=== PATIENT | female | born 1970 | race Caucasian/White ===

== ENCOUNTER 2018-06-27 14:13 | Outpatient (REF) | payer MEDICAID, SELFPAY ==
[2018-06-27 22:39] LABS: Abs Immature Grans 0.03 k/cumm (0.0-0.09); Absolute Basophil Count 0.02 k/cumm (0.0-0.2); Absolute Eosinophil Count 0.08 k/cumm (0.0-0.7); Absolute Lymphocyte Count 2.85 k/cumm (1.2-3.4); Basophils % 0.2; Eosinophils % 0.7; HCT 46.9 % (36.0-46.0); HGB 15.8 g/dL (12.0-15.5); Immature Grans % 0.3; Lymphocytes % 24.9; Mean Corp. HGB Concentration 33.7 g/dL (32.0-36.0); Mean Corpuscular Hemoglobin 32.2 pg (27.0-33.0); Mean Corpuscular Volume 95.5 fL (80-95); Mean Platelet Volume 12.5 fL (8.0-11.0); Monocytes % 6.6; Neutrophils % 67.3; Platelet Count 195 x1000/uL (130-400); RBC 4.91 m/cumm (4.00-5.20); RBC Distribution Width 12.5 % (11.7-14.6); White Blood Cell Count 11.44 k/cumm (4.4-10.8)
[2018-06-27 22:44] LABS: Absolute Monocyte Count 0.76 k/cumm (0.11-0.7)
[2018-06-27 22:53] LABS: TSH 1.03 uIU/mL (0.358-3.74)
[2018-06-27 23:12] LABS: Hemoglobin A1C 5.4 % (4.5-6.2)
== END 2018-06-27 14:33 ==
LOC: NCHCN 14:13
PROVIDERS: PCP Family Medicine; Visit Provider Family Medicine
DX: I10 Essential (primary) hypertension (principal); E66.9 Obesity, unspecified; R53.83 Other fatigue; R42 Dizziness and giddiness; R19.7 Diarrhea, unspecified
CPT/HCPCS: 83036; 84443; 85025

== ENCOUNTER 2018-11-17 16:08 | Outpatient (REF) | payer MEDICAID, SELFPAY ==
[2018-11-17 21:04] LABS: Abs Immature Grans 0.03 k/cumm (0.0-0.09); Absolute Basophil Count 0.03 k/cumm (0.0-0.2); Absolute Eosinophil Count 0.13 k/cumm (0.0-0.7); Absolute Lymphocyte Count 3.51 k/cumm (1.2-3.4); Absolute Monocyte Count 0.96 k/cumm (0.11-0.7); Absolute Neutrophil Count 6.73 k/cumm (1.2-6.7); Basophils % 0.3; Eosinophils % 1.1; HCT 46.2 % (36.0-46.0); HGB 15.4 g/dL (12.0-15.5); Immature Grans % 0.3; Lymphocytes % 30.8; Mean Corp. HGB Concentration 33.3 g/dL (32.0-36.0); Mean Corpuscular Hemoglobin 32.2 pg (27.0-33.0); Mean Corpuscular Volume 96.7 fL (80-95); Mean Platelet Volume 12.1 fL (8.0-11.0); Monocytes % 8.4; Neutrophils % 59.1; Platelet Count 194 x1000/uL (130-400); RBC 4.78 m/cumm (4.00-5.20); RBC Distribution Width 12.6 % (11.7-14.6); White Blood Cell Count 11.38 k/cumm (4.4-10.8)
== END 2018-11-17 16:28 ==
LOC: NCHCN 16:08
PROVIDERS: PCP Family Medicine; Visit Provider Nurse Practitioner Family
DX: R04.2 Hemoptysis (principal); R19.7 Diarrhea, unspecified
CPT/HCPCS: 85025

== ENCOUNTER 2019-03-05 07:49 | Outpatient (CLI) | payer MEDICAID, SELFPAY ==
[2019-03-05 08:18] LABS: Abs Immature Grans 0.01 k/cumm (0.0-0.09); Absolute Basophil Count 0.02 k/cumm (0.0-0.2); Absolute Eosinophil Count 0.09 k/cumm (0.0-0.7); Absolute Monocyte Count 0.52 k/cumm (0.11-0.7); Basophils % 0.4; Eosinophils % 1.8; HCT 38.9 % (36.0-46.0); HGB 13.4 g/dL (12.0-15.5); Immature Grans % 0.2 %; Lymphocytes % 49.6; Mean Corp. HGB Concentration 34.4 g/dL (32.0-36.0); Mean Corpuscular Hemoglobin 32.1 pg (27.0-33.0); Mean Corpuscular Volume 93.3 fL (80-95); Mean Platelet Volume 10.5 fL (8.0-11.0); Monocytes % 10.3; Neutrophils % 37.7; Platelet Count 262 x1000/uL (130-400); RBC 4.17 m/cumm (4.00-5.20); RBC Distribution Width 12.9 % (11.7-14.6); White Blood Cell Count 5.04 k/cumm (4.4-10.8)
[2019-03-05 08:31] LABS: ALT 20 U/L (14-59); AST 12 U/L (15-37); Albumin 3.4 g/dL (3.4-5.0); Alkaline Phosphatase 112 U/L (46-116); Anion Gap 12.2 mmol/L (3-11); BUN 11 mg/dL (7-18); Bilirubin, Total 0.2 mg/dL (0.2-1.0); CO2 26.8 mmol/L (21.0-32.0); CREATININE 0.74 mg/dL (0.55-1.02); Calcium 9.3 mg/dL (8.5-10.1); Chloride 103 mmol/L (98-107); Glucose 98 mg/dL (74-106); LDH 174 U/L (81-234); Magnesium 1.8 mg/dL (1.8-2.4); Potassium 4.5 mmol/L (3.5-5.1); Sodium 142 mmol/L (136-145); Total Protein 7.5 g/dL (6.4-8.2)
== END 2019-03-05 08:09 ==
PROVIDERS: Internal Medicine Hematology & Oncology; PCP Family Medicine; Visit Provider Internal Medicine Hospice and Palliative Medicine
DX: C34.92 Malignant neoplasm of unspecified part of left bronchus or lung (principal); C77.9 Secondary and unspecified malignant neoplasm of lymph node, unspecified
CPT/HCPCS: 36415; 80053; 83615; 83735; 85025

== ENCOUNTER 2019-03-26 07:50 | Outpatient (CLI) | payer MEDICAID, SELFPAY ==
[2019-03-26 08:24] LABS: Abs Immature Grans 0.01 k/cumm (0.0-0.09); Absolute Basophil Count 0.01 k/cumm (0.0-0.2); Absolute Eosinophil Count 0.11 k/cumm (0.0-0.7); Absolute Monocyte Count 0.61 k/cumm (0.11-0.7); Absolute Neutrophil Count 2.89 k/cumm (1.2-6.7); Basophils % 0.2; Eosinophils % 2.6; HGB 13.4 g/dL (12.0-15.5); Immature Grans % 0.2 %; Lymphocytes % 14.2; Mean Corp. HGB Concentration 34.4 g/dL (32.0-36.0); Mean Corpuscular Hemoglobin 32.1 pg (27.0-33.0); Mean Corpuscular Volume 93.3 fL (80-95); Mean Platelet Volume 10.3 fL (8.0-11.0); Monocytes % 14.4; Neutrophils % 68.4; Platelet Count 233 x1000/uL (130-400); RBC 4.18 m/cumm (4.00-5.20); RBC Distribution Width 14.2 % (11.7-14.6); White Blood Cell Count 4.23 k/cumm (4.4-10.8)
[2019-03-26 08:38] LABS: ALT 16 U/L (14-59); AST 13 U/L (15-37); Albumin 3.7 g/dL (3.4-5.0); Alkaline Phosphatase 103 U/L (46-116); Anion Gap 9.9 mmol/L (3-11); BUN 11 mg/dL (7-18); Bilirubin, Total 0.2 mg/dL (0.2-1.0); CO2 28.1 mmol/L (21.0-32.0); Calcium 8.7 mg/dL (8.5-10.1); Chloride 101 mmol/L (98-107); Glucose 95 mg/dL (74-106); LDH 177 U/L (81-234); Magnesium 1.8 mg/dL (1.8-2.4); Potassium 4.7 mmol/L (3.5-5.1); Sodium 139 mmol/L (136-145); Total Protein 7.4 g/dL (6.4-8.2)
== END 2019-03-26 08:10 ==
PROVIDERS: PCP Family Medicine; Visit Provider Internal Medicine Hospice and Palliative Medicine
DX: C34.92 Malignant neoplasm of unspecified part of left bronchus or lung (principal); C77.9 Secondary and unspecified malignant neoplasm of lymph node, unspecified
CPT/HCPCS: 36415; 80053; 83615; 83735; 85025

== ENCOUNTER 2019-04-16 03:14 | Outpatient (RCR) | payer MEDICAID, SELFPAY ==
[2019-04-16 08:44] LABS: Abs Immature Grans 0.05 k/cumm (0.0-0.09); Absolute Basophil Count 0.01 k/cumm (0.0-0.2); Absolute Lymphocyte Count 0.67 k/cumm (1.2-3.4); Absolute Monocyte Count 0.64 k/cumm (0.11-0.7); Absolute Neutrophil Count 2.91 k/cumm (1.2-6.7); Basophils % 0.2; HCT 32.4 % (36.0-46.0); HGB 10.8 g/dL (12.0-15.5); Immature Grans % 1.2 %; Lymphocytes % 15.7; Mean Corp. HGB Concentration 33.3 g/dL (32.0-36.0); Mean Corpuscular Hemoglobin 31.9 pg (27.0-33.0); Mean Corpuscular Volume 95.6 fL (80-95); Mean Platelet Volume 10.8 fL (8.0-11.0); Neutrophils % 67.9; Platelet Count 275 x1000/uL (130-400); RBC 3.39 m/cumm (4.00-5.20); RBC Distribution Width 15.6 % (11.7-14.6); White Blood Cell Count 4.28 k/cumm (4.4-10.8)
[2019-04-16 08:52] LABS: ALT 16 U/L (14-59); AST 12 U/L (15-37); Albumin 3.2 g/dL (3.4-5.0); Alkaline Phosphatase 99 U/L (46-116); Anion Gap 9.1 mmol/L (3-11); BUN 13 mg/dL (7-18); Bilirubin, Total 0.1 mg/dL (0.2-1.0); CO2 25.9 mmol/L (21.0-32.0); CREATININE 0.81 mg/dL (0.55-1.02); Calcium 8.5 mg/dL (8.5-10.1); Chloride 106 mmol/L (98-107); Glucose 90 mg/dL (74-106); LDH 188 U/L (81-234); Potassium 4.6 mmol/L (3.5-5.1); Sodium 141 mmol/L (136-145); Total Protein 6.5 g/dL (6.4-8.2)
--- NOTE | 2019-04-16 10:47 | NUR.NOTE ---
Picc insertion: Risks and Benefits explained to the patient, and all questions were answered. Consent for placement of Picc Line obtained. Ultrasound-guided Single Lumen 4 Fr. Catheter placed using Sherlock 3CG technology and sterile technique into the Left Basilic Vein. The Basilic Vein was cannulated, a wire and dilator were advanced without resistance followed by an 4 Fr. Picc catheter pre cut to 48 cm then advanced to the hub on the catheter. P-wave comparison peaked at the hub, confirming proper placement in the SVC, using Sherlock 3CG confirmation system. A biodot was placed then secured with a statlock and Tegaderm dressing. Blood return easily obtained and line flushes easily. The patient tolerated well. Ultrasound images on file. [ End ]
== END 2019-04-28 23:59 | disposition home or self-care (01) ==
LOC: INF 03:14
PROVIDERS: PCP Family Medicine; Visit Provider Internal Medicine Hematology & Oncology
DX: C34.92 Malignant neoplasm of unspecified part of left bronchus or lung (principal); Z45.2 Encounter for adjustment and management of vascular access device; Z79.899 Other long term (current) drug therapy
CPT/HCPCS: 36569; 36592; 80053; 83615; 83735; 85025

== ENCOUNTER 2019-05-07 00:51 | Outpatient (CLI) | payer MEDICAID, SELFPAY ==
--- NOTE | 2019-05-07 | DI.MRI_ITS ---
EXAM: MR BRAIN WO/W CLINICAL HISTORY: LT LUNG CA, C34.92, S/P CHEMO AND RADIATION,new headaches TECHNIQUE: Multiplanar multisequence MRI of the brain was performed. CONTRAST MATERIAL: IV Contrast: 17 ML of Dotarem contrast administered. FINDINGS: VENTRICLES AND EXTRA AXIAL SPACES: Normal in size and morphology for the patient's age. HEMORRHAGE: None. CEREBRAL PARENCHYMA: No focus of restricted diffusion to suggest acute infarct. No space-occupying le ann identified. There are scattered areas of T2 hyper intensity noted most consistent with small ves lalo ischemic disease. MIDLINE SHIFT: None. BRAINSTEM/CEREBELLUM: Normal. CALVARIUM: Normal. ENHANCEMENT: No suspicious enhancement identified. VISUALIZED PARANASAL SINUSES/MASTOIDS: Clear. [place]: Normal flow void. PITUITARY GLAND: Unremarkable. OTHER FINDINGS: None. IMPRESSION: No evidence of intracranial metastatic disease. DATA REPOSITORY:
[2019-05-07] MEDS: Normal Saline Flush 10 ML SYR IVP (15:12)
[2019-05-07] MEDS: Gadoterate meglumine 20 ML VIAL 17 ML IVP (15:13)
== END 2019-05-07 01:11 ==
PROVIDERS: PCP Family Medicine; Visit Provider Radiology Radiation Oncology
DX: C34.92 Malignant neoplasm of unspecified part of left bronchus or lung (principal); Z92.21 Personal history of antineoplastic chemotherapy; Z92.3 Personal history of irradiation; R51 Headache
CPT/HCPCS: 70553

== ENCOUNTER 2019-09-07 02:15 | Outpatient (CLI) | payer MEDICAID, SELFPAY ==
--- NOTE | 2019-09-07 | DI.MRI_ITS ---
EXAM: MR BRAIN WO/W CLINICAL HISTORY: SMALL CELL LUNG CA LT, C34.92. TECHNIQUE: Multiplanar multisequence MRI of the brain was performed. CONTRAST MATERIAL: IV Contrast: 16 ML of Dotarem contrast administered. COMPARISON: MR MR BRAIN WO/W from 05/07/2019 FINDINGS: VENTRICLES AND EXTRA AXIAL SPACES: Normal in size and morphology for the patient's age. HEMORRHAGE: None. CEREBRAL PARENCHYMA: There are minimal scattered tiny high signal lesions, consistent with small vess el disease, unchanged. No focus of restricted diffusion to suggest acute infarct. No space-occupying lesion identified. MIDLINE SHIFT: None. BRAINSTEM/CEREBELLUM: Normal. Or ENHANCEMENT: No suspicious enhancement identified. VISUALIZED PARANASAL SINUSES/MASTOIDS: Clear. The vascular flow voids appear intact. IMPRESSION: Unremarkable MRI of the brain. No evidence of metastatic disease. DATA REPOSITORY:
[2019-09-07 09:57] LABS: CREATININE 0.97 mg/dL (0.55-1.02)
[2019-09-07] MEDS: Normal Saline Flush 10 ML SYR IVP (09:58)
[2019-09-07] MEDS: Gadoterate meglumine 20 ML VIAL 16 ML IVP (10:00)
== END 2019-09-07 02:35 ==
PROVIDERS: PCP Family Medicine; Visit Provider Internal Medicine Hematology & Oncology
DX: C34.32 Malignant neoplasm of lower lobe, left bronchus or lung (principal); Z12.89 Encounter for screening for malignant neoplasm of other sites; I67.89 Other cerebrovascular disease
CPT/HCPCS: 70553; 82565

== ENCOUNTER 2019-11-09 12:17 | Outpatient (REF) | payer MEDICAID, SELFPAY ==
[2019-11-14 16:43] LABS: Patient Race White; SARS-CoV-2 RNA Undetected (Undetected); SARS-CoV-2 Specimen Source Nasal
== END 2019-11-09 12:37 ==
LOC: NCHCN 12:17
PROVIDERS: PCP Family Medicine; Visit Provider Family Medicine
DX: Z11.59 Encounter for screening for other viral diseases (principal)
CPT/HCPCS: U0003

== ENCOUNTER 2020-01-09 00:40 | Outpatient (CLI) | payer MEDICAID, SELFPAY ==
[2020-01-09] MEDS: Breeza Beverage 473 ML BTL PO ×2 (08:24→08:25)
[2020-01-09] MEDS: Omnipaque 350 MG/ML 50 ML BTL PO (08:24)
[2020-01-09 08:48] LABS: Abs Immature Grans 0.04 10^3/uL (0.0-0.06); Absolute Basophil Count 0.03 10^3/uL (0.0-0.2); Absolute Eosinophil Count 0.11 10^3/uL (0.0-0.7); Absolute Lymphocyte Count 0.88 10^3/uL (1.2-3.4); Absolute Monocyte Count 0.48 10^3/uL (0.1-0.8); Absolute Neutrophil Count 5.81 10^3/uL (1.2-6.7); Basophils % 0.4; Eosinophils % 1.5; HCT 40.7 % (36.0-46.0); Immature Grans % 0.5; MCH 33.1 pg (27.0-33.0); MCHC 34.4 % (32.0-36.0); MCV 96.2 fL (80-95); MPV 10.9 fL (8.0-11.0); Monocytes % 6.5; Neutrophils % 79.1; Nucleated RBC 0 %; Platelet Count 217 10^3/uL (130-400); RBC 4.23 10^6/uL (3.93-5.22); RDW 12.2 % (11.7-14.6); RDW-SD 43.5 fL; WBC 7.35 10^3/uL (4.4-10.8)
[2020-01-09 09:05] LABS: ALT 19 U/L (14-59); AST 13 U/L (15-37); Albumin 3.6 g/dL (3.4-5.0); Alkaline Phosphatase 117 U/L (46-116); Anion Gap 7.8 mmol/L (3-11); BUN 21 mg/dL (7-18); Bilirubin, Total 0.4 mg/dL (0.2-1.0); CO2 27.2 mmol/L (21.0-32.0); CREATININE 0.85 mg/dL (0.55-1.02); Calcium 9.2 mg/dL (8.5-10.1); Chloride 104 mmol/L (98-107); Glucose 92 mg/dL (74-106); Potassium 4.2 mmol/L (3.5-5.1); Sodium 139 mmol/L (136-145); Total Protein 7.3 g/dL (6.4-8.2)
[2020-01-09] MEDS: Omnipaque 350 MG/ML 100 ML BTL IJ (10:05)
[2020-01-09] MEDS: Normal Saline - Diluent 50 ML VIAL IV (10:05)
--- NOTE | 2020-01-09 10:10 | DI.CT_ITS ---
EXAM: CT CHEST/ABD/PEL W CLINICAL HISTORY: LT SMALL CELL LUNG CA,C34.92 TECHNIQUE: Imaging Protocol: Axial computed tomography images with coronal and sagittal reformatted images were created and reviewed CONTRAST MATERIAL: Intravenous: Omnipaque 350 Contrast volume:100 mL Oral: Yes COMPARISON: CT CHEST WITHOUT CONTRAST from 05/27/[address] CXR/ABD/PELVIS WITH CONTRAST from 05/18/2019 FINDINGS: CHEST: Tracheobronchial tree: Patent where visualized. Mediastinum and Zoe: No dominant adenopathy or fluid collection. Pulmonary parenchyma: Centrilobular pulmonary emphysema. The left upper lobe spiculated mass is not visualized on the current examination. The nodular opacity at the periphery of the left lower lobe is unchanged. There is a small infiltrate seen in the superior aspect of the left lower lobe. No new pu lmonary nodules are present. Pleura: No effusion or pneumothorax. Heart: The heart is not dilated. No coronary artery calcifications are seen. No pericardial effusion. Aorta: Thoracic aorta non-dilated. Atherosclerosis. Lymph nodes: Within normal limits. Bones:Degenerative changes. No suspicious osseous lesions.There is an old healed left 9th rib fractur e. Soft tissues: Unremarkable. ABDOMEN: Liver: Normal density. No measurable mass. The liver measures 19 cm in length. Portal, Superior Mesenteric, and Splenic Veins: Unremarkable. Gallbladder and Biliary Tract: No radiodense calculus or dilation. Pancreas: Normal density, no abnormal calcifications or inflammatory process. Spleen: Normal. Adrenals: Stable nodularity of the left adrenal gland. The right adrenal gland is unremarkable. Kidneys: Normal size, contour and axis. No radiodense stones or obstructive uropathy. No masses seen. Abdominal Aorta: Abdominal portion non-dilated. Atherosclerosis. Bowel: No obstruction or bowel wall thickening. Normal appendix is visualized. Peritoneal Cavity: No ascites, collection or mesenteric inflammatory response. Lymph Nodes: Within normal limits. Bones: Degenerative changes. No suspicious osseous lesions. Soft Tissues: Unremarkable. PELVIS: Bladder: Symmetric distention, no gross wall thickening. Reproductive Organs: Unremarkable as visualized. Lymph Nodes: Within normal limits. Bones: Please see above. IMPRESSION: 1. No evidence of abdominal or pelvic metastatic disease. 2. No evidence of thoracic metastatic disease. 3. Stable peripheral nodularity in the left lower lobe. 4. Pulmonary emphysema. RADIATION DOSE DELIVERED: 1,845.35mGy.cm Total DLP DATA REPOSITORY: All CT scans at this facility are submitted to the National Radiology Data Registry (NRDR) Dose Index Registry (DIR) with the [employer] (ACR). RADIATION OPTIMIZATION: All CT scans at this facility use at least one of these dose optimization te chniques: automated exposure control; mA and/or kV adjustment per patient size (includes targeted exa ms where dose is matched to clinical indication); or iterative reconstruction.
== END 2020-01-09 01:00 ==
PROVIDERS: Internal Medicine Hematology & Oncology; PCP Family Medicine; Visit Provider Nurse Practitioner Family
DX: C34.92 Malignant neoplasm of unspecified part of left bronchus or lung (principal); R91.1 Solitary pulmonary nodule; J43.9 Emphysema, unspecified
CPT/HCPCS: 74177; 80053; 71260; 85025; J3490; Q9967

== ENCOUNTER 2020-01-10 01:04 | Outpatient (CLI) | payer MEDICAID, SELFPAY ==
--- NOTE | 2020-01-10 | DI.MRI_ITS ---
EXAM: MR BRAIN WO/W CLINICAL HISTORY: LT SMALL CELL LUNG CA,C34.92. TECHNIQUE: Multiplanar multisequence MRI of the brain was performed. CONTRAST MATERIAL: IV Contrast: 16 ML of Dotarem contrast administered. COMPARISON: MR MR BRAIN WO/W from 05/07/2019 MR MR BRAIN WO/W from 09/07/2019 FINDINGS: VENTRICLES AND EXTRA AXIAL SPACES: Normal in size and morphology for the patient's age. HEMORRHAGE: None. CEREBRAL PARENCHYMA: No focus of restricted diffusion to suggest acute infarct. MIDLINE SHIFT: None. BRAINSTEM/CEREBELLUM: Normal. CALVARIUM: Normal. ENHANCEMENT: There is a 1.3 x 1.3 cm enhancing lesion in the right occipital lobe medially. There is mild associated edema present. There is a 0.3 cm enhancing nodule in the left savage radiata. Ther e is a peripherally enhancing lesion within associated enhancing nodule in the posterior aspect of th e left parietal lobe. These are all consistent with metastatic disease. VISUALIZED PARANASAL SINUSES/MASTOIDS: Clear. OTHER FINDINGS: None. IMPRESSION: Three new intracranial enhancing lesions which are consistent with metastatic disease. DATA REPOSITORY:
[2020-01-10] MEDS: Normal Saline Flush 10 ML SYR IVP (15:07)
[2020-01-10] MEDS: Gadoterate meglumine 20 ML VIAL 16 ML IVP (15:08)
== END 2020-01-10 01:24 ==
PROVIDERS: PCP Family Medicine; Visit Provider Nurse Practitioner Family
DX: C34.92 Malignant neoplasm of unspecified part of left bronchus or lung (principal); G93.9 Disorder of brain, unspecified
CPT/HCPCS: 70553

== ENCOUNTER 2020-02-25 18:38 | Outpatient (REF) | payer MEDICAID, SELFPAY ==
[2020-02-27 21:18] LABS: COVID-19 RT-PCR Result NEGATIVE (Negative)
== END 2020-02-25 18:58 ==
LOC: NCHCN 18:38
PROVIDERS: PCP Family Medicine; Visit Provider Nurse Practitioner Family
DX: R53.83 Other fatigue (principal)
CPT/HCPCS: U0003

== ENCOUNTER 2020-03-13 01:21 | Outpatient (CLI) | payer MEDICAID, SELFPAY ==
--- NOTE | 2020-03-13 | DI.MRI_ITS ---
EXAM: MR BRAIN WO/W CLINICAL HISTORY: LUNG CA WITH BRAIN METS,S/P XRT,ASSESS RESPONSE. TECHNIQUE: Multiplanar multisequence MRI was performed. COMPARISON: MR MR BRAIN WO/W from 01/10/2020 FINDINGS: MR examination of brain obtained on January 09 showed 3 enhancing lesions in the parietooccipital cortex. Today's examination was performed prior to and following contrast administration. The post contrast images again show the 3 enhancing areas in question however each of these have decreased in size,The largest lesion, in the right occipital lobe, which previously measured about 13 x 12 millim eters in diameter, now measures about 10 x 6 millimeters in diameter. There is a question of tiny poorly defined new area of enhancement in the left occipital lobe labor supervisor iorly, this is a questionable finding. No other convincing new metastatic lesion identified. Ventricular system is normal in appearance. Orbital and temporal bone structures appear intact. There is no evidence of intracranial infarct on diffusion-weighted imaging. Susceptibility weighted imagin g shows no evidence of hemorrhage. IMPRESSION: Interval decrease in size of multiple metastatic lesions as noted on prior MRI. Question tiny new le ft posterior occipital 4 millimeter lesion. DATA REPOSITORY:
[2020-03-13] MEDS: Normal Saline Flush 10 ML SYR IVP (14:13)
[2020-03-13] MEDS: Gadoterate meglumine 20 ML VIAL 17 ML IVP (14:13)
== END 2020-03-13 01:41 ==
PROVIDERS: PCP Family Medicine; Visit Provider Radiology Radiation Oncology
DX: C79.31 Secondary malignant neoplasm of brain (principal); C34.92 Malignant neoplasm of unspecified part of left bronchus or lung
CPT/HCPCS: 70553

== ENCOUNTER 2020-04-18 01:01 | Outpatient (CLI) | payer MEDICAID, SELFPAY ==
[2020-04-18 09:01] LABS: Abs Immature Grans 0.02 10^3/uL (0.0-0.06); Absolute Basophil Count 0.03 10^3/uL (0.0-0.2); Absolute Eosinophil Count 0.09 10^3/uL (0.0-0.7); Absolute Lymphocyte Count 1.01 10^3/uL (1.2-3.4); Absolute Monocyte Count 0.58 10^3/uL (0.1-0.8); Basophils % 0.4; Eosinophils % 1.1; HCT 41.1 % (36.0-46.0); Immature Grans % 0.2; Lymphocytes % 12.4; MCHC 34.1 % (32.0-36.0); MCV 94.1 fL (80-95); MPV 11.3 fL (8.0-11.0); Monocytes % 7.1; Neutrophils % 78.8; Nucleated RBC 0 %; Platelet Count 208 10^3/uL (130-400); RBC 4.37 10^6/uL (3.93-5.22); RDW 11.4 % (11.7-14.6); RDW-SD 39.8 fL; WBC 8.13 10^3/uL (4.4-10.8)
[2020-04-18 09:14] LABS: ALT 18 U/L (14-59); AST 9 U/L (15-37); Albumin 3.6 g/dL (3.4-5.0); Alkaline Phosphatase 101 U/L (46-116); Anion Gap 7.8 mmol/L (3-11); BUN 15 mg/dL (7-18); Bilirubin, Total 0.3 mg/dL (0.2-1.0); CO2 27.2 mmol/L (21.0-32.0); CREATININE 0.9 mg/dL (0.55-1.02); Calcium 9.2 mg/dL (8.5-10.1); Chloride 102 mmol/L (98-107); Glucose 91 mg/dL (74-106); Potassium 4.2 mmol/L (3.5-5.1); Sodium 137 mmol/L (136-145); Total Protein 7.3 g/dL (6.4-8.2)
[2020-04-18] MEDS: Breeza Beverage 473 ML BTL PO (10:09)
[2020-04-18] MEDS: Omnipaque 350 MG/ML 50 ML BTL IJ (10:10)
[2020-04-18] MEDS: Normal Saline - Diluent 50 ML VIAL IV (10:11)
[2020-04-18] MEDS: Omnipaque 350 MG/ML 100 ML BTL IJ (10:12)
--- NOTE | 2020-04-18 10:16 | DI.CT_ITS ---
EXAM: CT CHEST/ABD/PEL W CLINICAL HISTORY: LT SMALL CELL LUNG CA,C34.92,AAA,ASSESS TREATMENT RESPONSE. TECHNIQUE: Imaging Protocol: Axial computed tomography images with coronal and sagittal reformatted images were created and reviewed CONTRAST MATERIAL: Intravenous: Omnipaque 350 Contrast volume:100 cc Oral: yes COMPARISON: CT CT CXR/ABD/PELVIS WITH CONTRAST from 05/18/[address] CXR/ABD/PELVIS WITH CONTRAST from 05/18/2019 CR CHEST 2V from 11/09/2019 CR CHEST 2V from 11/09/[address] CHEST/ABD/PEL W from 01/09/[address] CHEST/ABD/PEL W from 01/09/2020 FINDINGS: CHEST: Tracheobronchial tree: Patent where visualized. Mediastinum and Zoe: No dominant adenopathy or fluid collection. Pulmonary parenchyma: Emphysematous and fibrotic changes, greater in the upper lobes. New 5 x 4 mill imeter areas of spiculated nodularity in the anterior left upper lobe. Areas of scarring are again n oted laterally and inferiorly in the left upper lobe. Stable area scarring inferolaterally in the le ft lower lobe. The previously noted airspace densities in left lower lobe have improved. No right-s ided pulmonary nodules.. Pleura: No effusion or pneumothorax. Lymph nodes: Within normal limits. Aorta: Thoracic portion non-dilated. Heart: Normal size. No visible coronary artery calcifications. Bones: Mild degenerative changes. Old left rib fracture. ABDOMEN: Liver: Normal density. No measurable mass. Gallbladder and biliary tract: No radiodense calculus or dilation. Pancreas: Normal density, no abnormal calcifications or inflammatory process. Spleen: Normal. Kidneys: Normal size, contour and axis. No radiodense stones or obstructive uropathy. No masses seen. Adrenal glands: No masses seen. Stable mild prominence of the left adrenal gland. Aorta: Abdominal portion non-dilated. Lymph nodes: Within normal limits. PELVIS: Bladder: Symmetric distention, no gross wall thickening. Bowel: No obstruction or bowel wall thickening. Peritoneal cavity: No ascites, collection or mesenteric inflammatory response. Bones: Mild degenerative changes. Reproductive organs: Status post hysterectomy. Ovaries normal. IMPRESSION: New 5 x 4 millimeter left upper lobe nodule. No evidence of adenopathy. Stable areas of scarring in the left lung. No evidence of metastatic disease in the abdomen or pelvis. RADIATION DOSE DELIVERED: 1,985.33mGy.cm Total DLP DATA REPOSITORY: All CT scans at this facility are submitted to the National Radiology Data Registry (NRDR) Dose Index Registry (DIR) with the [employer] (ACR). RADIATION OPTIMIZATION: All CT scans at this facility use at least one of these dose optimization te chniques: automated exposure control; mA and/or kV adjustment per patient size (includes targeted exa ms where dose is matched to clinical indication); or iterative reconstruction.
== END 2020-04-18 01:02 ==
LOC: DI 01:02
PROVIDERS: PCP Family Medicine; Visit Provider Internal Medicine Hematology & Oncology
DX: C34.92 Malignant neoplasm of unspecified part of left bronchus or lung (principal); R91.1 Solitary pulmonary nodule
CPT/HCPCS: 74177; 80053; 71260; 85025; J3490; Q9967

== ENCOUNTER 2020-07-18 04:12 | Outpatient (CLI) | payer MEDICAID, SELFPAY ==
[2020-07-18] MEDS: Gadoterate meglumine 20 ML VIAL 16 ML IVP (11:19)
--- NOTE | 2020-07-18 12:00 | DI.MRI_ITS ---
Exam(s) MR BRAIN WO/W EXAM: MR BRAIN WO/W CLINICAL HISTORY: BRAIN METS,C79.31,H/O LUNG CA,S/P RADIATION,ASSESS RESPONSE TECHNIQUE: Multiplanar multisequence MRI of the brain was performed. COMPARISON: MR MR BRAIN WO/W from 03/13/2020 FINDINGS: The ventricular system is normal in appearance. Note is again made multiple cerebral metastases, as noted on prior brain MRI of March 13 of this year. in comparison with the previous examination, there is interval increase in size of lesions in t he occipital lobes bilaterally, the largest lesion on the right now measures about 18 x 15 millimeter s in diameter as opposed to 10 x 6 millimeters in diameter on the prior study. There is a new left f rontal lesion measuring roughly 8 millimeters in greatest diameter. A high right parietal lesion poo rly visualized on the prior examination but probably measuring about [address] greatest diame ter now measures about 16 millimeters in greatest diameter. The orbital and temporal bone structures appear intact as does the pituitary. Diffusion weighted imaging shows no evidence of infarction. Susceptibility weighted imaging shows no evidence of intracranial hemorrhage. There is normal flow void in the [place] vasculature. IMPRESSION: Interval increase in size and number of intracerebral metastases. Please see above discussion. DATA REPOSITORY:
== END 2020-07-18 04:32 ==
PROVIDERS: PCP Family Medicine; Visit Provider Radiology Radiation Oncology
DX: C79.31 Secondary malignant neoplasm of brain (principal); Z85.118 Personal history of other malignant neoplasm of bronchus and lung
CPT/HCPCS: 70553

== ENCOUNTER 2020-07-23 02:21 | Outpatient (CLI) | payer MEDICAID, SELFPAY ==
--- NOTE | 2020-07-23 | DI.CT_ITS ---
Exam(s) CT CHEST W EXAM: CT CHEST W CLINICAL HISTORY: LT LUNG CA,C34.92,ASSESS TREATMENT RESPONSE. TECHNIQUE: Multi planar reconstructions were performed. CONTRAST MATERIAL: Omnipaque 350; 75 cc COMPARISON: CT CT CXR/ABD/PELVIS WITH CONTRAST from 05/18/[address] CHEST/ABD/PEL W from 01/09/2020 FINDINGS: CHEST: LUNGS: COPD emphysematous changes again noted. Also slightly decreased left hemithoracic volume, mos t probably related to prior lobectomy. There has been slight improvement in left lower lobe infiltra te although this is not yet resolved. Pleural based density over the anterior basal segment left low er lobe appears unchanged. In the anterior aspect of the upper left lung there is a 4 x 2 millimeter nodular density now evident. This was not evident on the 01/09/2020 scan nor on the 05/18/2019 scan . In the opposite-right lung there are no new significant focal findings. There are no pleural effusio ns on either side. No new findings in trachea and mainstem bronchi. MEDIASTINUM: There is no new hilar nor mediastinal adenopathy there is a 5 millimeter nodule incident ally noted in the left thyroid lobe. Smaller nodule in the right lobe. The entire thyroid gland is not included in the field of view of this study. CARDIAC: Heart size is normal. There is no pericardial effusion.Caliber of the thoracic aorta is wit hin normal limits. VISUALIZED UPPER ABDOMEN:Right adrenal gland unremarkable. Nodularity of the left adrenal gland is u nchanged from the 2 prior studies listed above. No new lesions evident in partially visualized liver . There is a small cyst in the inferior right hepatic lobe measuring 8 x 7 millimeters, unchanged fr om April 2019. OSSEOUS: No new significant osseous lesions.. IMPRESSION: 1. In the superior aspect of the left lung there is a new 3-4 millimeter nodule noted. This require appropriate follow-up. Other previously described findings in the left lung remains stable. No new findings in the opposite-right lung and there are no pleural effusions nor new intrathoracic adenopat hy. 2. Incidentally noted thyroid findings as described above. 3. Stable appearance of the slightly nodular left adrenal gland, unchanged from the prior 2 studies l isted above. RADIATION DOSE DELIVERED: 576.86mGy.cm Total DLP DATA REPOSITORY: All CT scans at this facility are submitted to the National Radiology Data Registry (NRDR) Dose Index Registry (DIR) with the [employer] (ACR). RADIATION OPTIMIZATION: All CT scans at this facility use at least one of these dose optimization te chniques: automated exposure control; mA and/or kV adjustment per patient size (includes targeted exa ms where dose is matched to clinical indication); or iterative reconstruction.
[2020-07-23 12:57] LABS: Abs Immature Grans 0.03 10^3/uL (0.0-0.06); Absolute Basophil Count 0.03 10^3/uL (0.0-0.2); Absolute Eosinophil Count 0.13 10^3/uL (0.0-0.7); Absolute Lymphocyte Count 1.49 10^3/uL (1.2-3.4); Absolute Monocyte Count 0.78 10^3/uL (0.1-0.8); Absolute Neutrophil Count 4.96 10^3/uL (1.2-6.7); Basophils % 0.4; Eosinophils % 1.8; HCT 38.5 % (36.0-46.0); HGB 13.3 g/dL (11.2-15.7); Immature Grans % 0.4; Lymphocytes % 20.1; MCH 32.2 pg (27.0-33.0); MCHC 34.5 % (32.0-36.0); MCV 93.2 fL (80-95); MPV 10.9 fL (8.0-11.0); Monocytes % 10.5; Neutrophils % 66.8; Nucleated RBC 0 %; Platelet Count 197 10^3/uL (130-400); RBC 4.13 10^6/uL (3.93-5.22); RDW-SD 41.3 fL; WBC 7.42 10^3/uL (4.4-10.8)
[2020-07-23 13:12] LABS: ALT 20 U/L (14-59); AST 11 U/L (15-37); Albumin 3.3 g/dL (3.4-5.0); Alkaline Phosphatase 107 U/L (46-116); BUN 14 mg/dL (7-18); Bilirubin, Total 0.3 mg/dL (0.2-1.0); Calcium 8.4 mg/dL (8.5-10.1); Chloride 106 mmol/L (98-107); Estimated GFR 58.69 (mL/min/1.73m2); Glucose 113 mg/dL (74-106); Potassium 3.5 mmol/L (3.5-5.1); Sodium 141 mmol/L (136-145); Total Protein 6.9 g/dL (6.4-8.2)
[2020-07-23] MEDS: Omnipaque 350 MG/ML 100 ML BTL IJ (14:13)
[2020-07-23] MEDS: Normal Saline - Diluent 50 ML VIAL IV (14:14)
[2020-07-23] MEDS: Normal Saline Flush 10 ML SYR IVP (14:14)
== END 2020-07-23 02:41 ==
PROVIDERS: PCP Family Medicine; Visit Provider Internal Medicine Hematology & Oncology
DX: C34.92 Malignant neoplasm of unspecified part of left bronchus or lung (principal); J44.9 Chronic obstructive pulmonary disease, unspecified; R91.1 Solitary pulmonary nodule; E04.1 Nontoxic single thyroid nodule
CPT/HCPCS: 80053; 71260; 85025; J3490

== ENCOUNTER 2020-09-25 04:13 | Outpatient (CLI) | payer MEDICAID, SELFPAY ==
[2020-09-25 13:10] LABS: Abs Immature Grans 0.04 10^3/uL (0.0-0.06); Absolute Basophil Count 0.03 10^3/uL (0.0-0.2); Absolute Eosinophil Count 0.09 10^3/uL (0.0-0.7); Absolute Lymphocyte Count 1.16 10^3/uL (1.2-3.4); Absolute Monocyte Count 0.62 10^3/uL (0.1-0.8); Absolute Neutrophil Count 5.53 10^3/uL (1.2-6.7); Basophils % 0.4; Eosinophils % 1.2; HCT 38.4 % (36.0-46.0); HGB 13.2 g/dL (11.2-15.7); Immature Grans % 0.5; Lymphocytes % 15.5; MCH 32.8 pg (27.0-33.0); MCHC 34.4 % (32.0-36.0); MCV 95.5 fL (80-95); MPV 10.6 fL (8.0-11.0); Monocytes % 8.3; Neutrophils % 74.1; Nucleated RBC 0 %; Platelet Count 269 10^3/uL (130-400); RBC 4.02 10^6/uL (3.93-5.22); RDW 12.9 % (11.7-14.6); WBC 7.47 10^3/uL (4.4-10.8)
[2020-09-25 13:19] LABS: ALT 31 U/L (14-59); AST 14 U/L (15-37); Albumin 3.5 g/dL (3.4-5.0); Alkaline Phosphatase 119 U/L (46-116); Anion Gap 8.9 mmol/L (3-11); BUN 9 mg/dL (7-18); Bilirubin, Total 0.2 mg/dL (0.2-1.0); CO2 28.1 mmol/L (21.0-32.0); CREATININE 0.9 mg/dL (0.55-1.02); Calcium 9.1 mg/dL (8.5-10.1); Chloride 104 mmol/L (98-107); Glucose 124 mg/dL (74-106); Potassium 3.8 mmol/L (3.5-5.1); Sodium 141 mmol/L (136-145); Total Protein 7.2 g/dL (6.4-8.2)
== END 2020-09-25 04:14 | disposition home or self-care (01) ==
LOC: LBO 04:13
PROVIDERS: PCP Family Medicine; Visit Provider Internal Medicine Hematology & Oncology
DX: C34.92 Malignant neoplasm of unspecified part of left bronchus or lung (principal)
CPT/HCPCS: 36415; 80053; 85025

== ENCOUNTER 2020-10-17 10:38 | Outpatient (CLI) | payer MEDICAID, SELFPAY ==
[2020-10-17] MEDS: Gadoterate meglumine 20 ML VIAL 16 ML IVP (12:07)
--- NOTE | 2020-10-17 12:30 | DI.MRI_ITS ---
Exam(s) MR BRAIN WO/W EXAM: MR BRAIN WO/W CLINICAL HISTORY: RECURRENT BRAIN METS FROM LUNG CA,S/P SRS,CHANGE IN MENTAL STATUS TECHNIQUE: Multiplanar multisequence MRI of the brain was performed. CONTRAST MATERIAL: IV Contrast: 16 ML of Dotarem contrast administered. COMPARISON: MR MR BRAIN WO/W from 07/18/2020 MR MR BRAIN WO/W from 07/18/2020 FINDINGS: VENTRICLES AND EXTRA AXIAL SPACES: Normal in size and morphology for the patient's age. HEMORRHAGE: The gradient images again show evidence of old hemorrhage. CEREBRAL PARENCHYMA: No focus of restricted diffusion to suggest acute infarct. No space-occupying le ann identified. There are areas of hyperintense signal in the white matter on the T2 and FLAIR image s which may reflect small vessel ischemic disease or sequelae from radiation therapy. MIDLINE SHIFT: None. BRAINSTEM/CEREBELLUM: Normal. CALVARIUM: Normal. ENHANCEMENT: There has been a decrease in size of the right occipital lesion which now measures 1.5 x 1.4 cm. This compares to 1.8 x 1.5 cm. The left frontal lesion now measures 0.6 cm compared to 0.8 cm. The left posterior parietal lesion measures 1.3 x 1.4 cm compared to 1.5 x 1.6 cm. The left oc cipital lesion now measures 0.5 cm compared to 0.6 cm. No new intracranial lesions are present. VISUALIZED PARANASAL SINUSES/MASTOIDS: Clear. [place] OF [place]: Normal flow void. PITUITARY GLAND: Unremarkable. OTHER FINDINGS: IMPRESSION: Interval decrease in size of intracranial metastases. No new intracranial masses are seen. DATA REPOSITORY:
== END 2020-10-17 10:58 ==
PROVIDERS: PCP Family Medicine; Visit Provider Radiology Radiation Oncology
DX: C79.31 Secondary malignant neoplasm of brain (principal); C79.49 Secondary malignant neoplasm of other parts of nervous system; C34.90 Malignant neoplasm of unspecified part of unspecified bronchus or lung; Z92.3 Personal history of irradiation
CPT/HCPCS: 70553

== ENCOUNTER 2020-10-21 03:19 | Outpatient (CLI) | payer MEDICAID, SELFPAY ==
--- NOTE | 2020-10-21 | DI.CT_ITS ---
Exam(s) CT CHEST/ABD/PEL W EXAM: CT CHEST/ABD/PEL W CLINICAL HISTORY: SMALL CELL LUNG CA, C34.92. TECHNIQUE: Imaging Protocol: Axial computed tomography images with coronal and sagittal reformatted images were created and reviewed CONTRAST MATERIAL: Intravenous: Omnipaque 350 Contrast volume:100 ml Oral: yes COMPARISON: CT CT CHEST/ABD/PEL W from 04/18/2020 FINDINGS: CHEST: Tracheobronchial tree: Patent where visualized. Mediastinum and Zoe: No dominant adenopathy or fluid collection. Pulmonary parenchyma: Moderate to severe emphysematous and fibrotic changes, greater in the upper lob es.. Previously noted 5 millimeter left upper lobe nodule is no longer visible. Stable areas of sca rring in the left upper and lower lobes. No new abnormalities. Pleura: No effusion or pneumothorax. Lymph nodes: Within normal limits. Aorta: Thoracic portion non-dilated. Heart: Normal size. No coronary artery calcifications. Bones: Unremarkable for age. No lytic or blastic lesions. Port over right pectoral muscle with tip in the SVC. ABDOMEN: Liver: Normal density. No measurable mass. Gallbladder and biliary tract: No radiodense calculus or dilation. Pancreas: Normal density, no abnormal calcifications or inflammatory process. Spleen: Normal. Kidneys: Normal size, contour and axis. No radiodense stones or obstructive uropathy. No masses seen. Adrenal glands: No masses seen. Aorta: Abdominal portion non-dilated. Lymph nodes: Within normal limits. Soft tissues: Unremarkable. PELVIS: Bladder: Symmetric distention, no gross wall thickening. Bowel: No obstruction or bowel wall thickening. Peritoneal cavity: No ascites, collection or mesenteric inflammatory response. Bones: Unremarkable for age.. Reproductive organs: Status post hysterectomy. IMPRESSION: Previously noted 5 millimeter left upper lobe nodule is no longer seen. No new areas of nodularity, infiltrate or effusion. Underlying emphysematous and fibrotic changes. No evidence of metastatic di sease in the abdomen or pelvis. RADIATION DOSE DELIVERED: 1,990.31mGy.cm Total DLP DATA REPOSITORY: All CT scans at this facility are submitted to the National Radiology Data Registry (NRDR) Dose Index Registry (DIR) with the [employer] (ACR). RADIATION OPTIMIZATION: All CT scans at this facility use at least one of these dose optimization te chniques: automated exposure control; mA and/or kV adjustment per patient size (includes targeted exa ms where dose is matched to clinical indication); or iterative reconstruction.
[2020-10-21] MEDS: Omnipaque 350 MG/ML 100 ML BTL IJ (09:45)
[2020-10-21] MEDS: Breeza Beverage 473 ML BTL PO (09:49)
[2020-10-21] MEDS: Omnipaque 350 MG/ML 50 ML BTL IJ (09:50)
== END 2020-10-21 03:39 ==
PROVIDERS: PCP Family Medicine; Visit Provider Internal Medicine Hematology & Oncology
DX: C34.92 Malignant neoplasm of unspecified part of left bronchus or lung (principal); J43.9 Emphysema, unspecified
CPT/HCPCS: 74177; 80053; 71260; 85025; J3490; Q9967

== ENCOUNTER 2020-10-21 08:00 | Outpatient (RCR) | payer MEDICAID, SELFPAY ==
[2020-10-17] MEDS: Normal Saline Flush 10 ML SYR IVP (11:30)
[2020-10-17] MEDS: Heparin 500 UNITS/5 ML SYRINGE IV (12:03)
[2020-10-21] MEDS: Normal Saline Flush 10 ML SYR IVP (08:05)
[2020-10-21] MEDS: Heparin 500 UNITS/5 ML SYRINGE IVP (08:05)
[2020-10-21 08:40] LABS: Abs Immature Grans 0.04 10^3/uL (0.0-0.06); Absolute Basophil Count 0.03 10^3/uL (0.0-0.2); Absolute Eosinophil Count 0.04 10^3/uL (0.0-0.7); Absolute Lymphocyte Count 1.47 10^3/uL (1.2-3.4); Absolute Monocyte Count 0.73 10^3/uL (0.1-0.8); Absolute Neutrophil Count 6.33 10^3/uL (1.2-6.7); Basophils % 0.3; Eosinophils % 0.5; HCT 38.8 % (36.0-46.0); HGB 13.4 g/dL (11.2-15.7); Immature Grans % 0.5; MCHC 34.5 % (32.0-36.0); MCV 95.6 fL (80-95); Monocytes % 8.4; Neutrophils % 73.3; Nucleated RBC 0 %; Platelet Count 225 10^3/uL (130-400); RBC 4.06 10^6/uL (3.93-5.22); RDW 12.4 % (11.7-14.6); RDW-SD 43.8 fL; WBC 8.64 10^3/uL (4.4-10.8)
[2020-10-21 09:05] LABS: ALT 20 U/L (14-59); AST 12 U/L (15-37); Albumin 3.5 g/dL (3.4-5.0); Alkaline Phosphatase 99 U/L (46-116); Anion Gap 9.7 mmol/L (3-11); BUN 14 mg/dL (7-18); Bilirubin, Total 0.3 mg/dL (0.2-1.0); CO2 26.3 mmol/L (21.0-32.0); CREATININE 0.9 mg/dL (0.55-1.02); Chloride 107 mmol/L (98-107); Glucose 85 mg/dL (74-106); Potassium 3.3 mmol/L (3.5-5.1); Sodium 143 mmol/L (136-145); Total Protein 6.9 g/dL (6.4-8.2)
== END 2020-10-28 23:59 | disposition home or self-care (01) ==
LOC: INF 08:00
PROVIDERS: PCP Family Medicine; Visit Provider Internal Medicine Hematology & Oncology
DX: C34.92 Malignant neoplasm of unspecified part of left bronchus or lung (principal); Z45.2 Encounter for adjustment and management of vascular access device
CPT/HCPCS: 36591; 80053; 96523; 85025

== ENCOUNTER 2020-11-20 01:02 | Outpatient (RCR) | payer MEDICAID, SELFPAY ==
[2020-11-20] MEDS: Normal Saline Flush 10 ML SYR IVP (08:10)
[2020-11-20 08:31] LABS: Abs Immature Grans 0.01 10^3/uL (0.0-0.06); Absolute Basophil Count 0.03 10^3/uL (0.0-0.2); Absolute Eosinophil Count 0.19 10^3/uL (0.0-0.7); Absolute Lymphocyte Count 1.07 10^3/uL (1.2-3.4); Absolute Monocyte Count 0.51 10^3/uL (0.1-0.8); Absolute Neutrophil Count 3.98 10^3/uL (1.2-6.7); Basophils % 0.5; Eosinophils % 3.3; HCT 40.6 % (36.0-46.0); HGB 13.8 g/dL (11.2-15.7); Immature Grans % 0.2; Lymphocytes % 18.5; MCH 32.5 pg (27.0-33.0); MCV 95.5 fL (80-95); MPV 11.1 fL (8.0-11.0); Monocytes % 8.8; Neutrophils % 68.7; Nucleated RBC 0 %; Platelet Count 207 10^3/uL (130-400); RBC 4.25 10^6/uL (3.93-5.22); RDW 12.7 % (11.7-14.6); RDW-SD 44.3 fL; WBC 5.79 10^3/uL (4.4-10.8)
[2020-11-20 08:45] LABS: ALT 33 U/L (14-59); AST 14 U/L (15-37); Albumin 3.5 g/dL (3.4-5.0); Alkaline Phosphatase 103 U/L (46-116); Anion Gap 8.8 mmol/L (3-11); BUN 10 mg/dL (7-18); Bilirubin, Total 0.4 mg/dL (0.2-1.0); CO2 28.2 mmol/L (21.0-32.0); CREATININE 0.8 mg/dL (0.55-1.02); Calcium 9.3 mg/dL (8.5-10.1); Chloride 105 mmol/L (98-107); Glucose 109 mg/dL (74-106); Sodium 142 mmol/L (136-145); Total Protein 6.9 g/dL (6.4-8.2)
== END 2020-11-27 23:59 | disposition home or self-care (01) ==
LOC: INF 01:02
PROVIDERS: PCP Family Medicine; Visit Provider Internal Medicine Hematology & Oncology
DX: C34.92 Malignant neoplasm of unspecified part of left bronchus or lung (principal); Z45.2 Encounter for adjustment and management of vascular access device
CPT/HCPCS: 36591; 80053; 85025

== ENCOUNTER 2020-12-18 02:18 | Outpatient (RCR) | payer MEDICAID, SELFPAY ==
[2020-12-04] MEDS: Normal Saline Flush 10 ML SYR IVP (08:15)
[2020-12-04 08:19] LABS: Abs Immature Grans 0.02 10^3/uL (0.0-0.06); Absolute Basophil Count 0.02 10^3/uL (0.0-0.2); Absolute Eosinophil Count 0.08 10^3/uL (0.0-0.7); Absolute Lymphocyte Count 1.02 10^3/uL (1.2-3.4); Absolute Monocyte Count 0.61 10^3/uL (0.1-0.8); Absolute Neutrophil Count 5.24 10^3/uL (1.2-6.7); Basophils % 0.3; Eosinophils % 1.1; HCT 41.1 % (36.0-46.0); Immature Grans % 0.3; Lymphocytes % 14.6; MCH 32.6 pg (27.0-33.0); MCHC 34.1 % (32.0-36.0); MCV 95.8 fL (80-95); MPV 11.3 fL (8.0-11.0); Monocytes % 8.7; Nucleated RBC 0 %; Platelet Count 214 10^3/uL (130-400); RBC 4.29 10^6/uL (3.93-5.22); RDW 13.2 % (11.7-14.6); RDW-SD 45.9 fL; WBC 6.99 10^3/uL (4.4-10.8)
[2020-12-04 08:34] LABS: ALT 30 U/L (14-59); AST 15 U/L (15-37); Albumin 3.6 g/dL (3.4-5.0); Alkaline Phosphatase 108 U/L (46-116); Anion Gap 5.7 mmol/L (3-11); BUN 8 mg/dL (7-18); Bilirubin, Total 0.3 mg/dL (0.2-1.0); CO2 28.3 mmol/L (21.0-32.0); CREATININE 0.8 mg/dL (0.55-1.02); Calcium 8.9 mg/dL (8.5-10.1); Chloride 106 mmol/L (98-107); Glucose 87 mg/dL (74-106); Potassium 4.2 mmol/L (3.5-5.1); Sodium 140 mmol/L (136-145); Total Protein 7.1 g/dL (6.4-8.2)
[2020-12-18] MEDS: Normal Saline Flush 10 ML SYR IVP (07:35)
[2020-12-18 08:09] LABS: Abs Immature Grans 0.02 10^3/uL (0.0-0.06); Absolute Basophil Count 0.03 10^3/uL (0.0-0.2); Absolute Eosinophil Count 0.13 10^3/uL (0.0-0.7); Absolute Lymphocyte Count 1.14 10^3/uL (1.2-3.4); Absolute Monocyte Count 0.59 10^3/uL (0.1-0.8); Absolute Neutrophil Count 4.62 10^3/uL (1.2-6.7); Basophils % 0.5; HCT 40.3 % (36.0-46.0); HGB 13.7 g/dL (11.2-15.7); Immature Grans % 0.3; Lymphocytes % 17.5; MCH 32.2 pg (27.0-33.0); MCV 94.6 fL (80-95); MPV 11.6 fL (8.0-11.0); Neutrophils % 70.7; Nucleated RBC 0 %; Platelet Count 228 10^3/uL (130-400); RBC 4.26 10^6/uL (3.93-5.22); RDW 13.3 % (11.7-14.6); RDW-SD 46.3 fL; WBC 6.53 10^3/uL (4.4-10.8)
[2020-12-18 08:22] LABS: ALT 34 U/L (14-59); AST 12 U/L (15-37); Albumin 3.6 g/dL (3.4-5.0); Alkaline Phosphatase 91 U/L (46-116); Anion Gap 7.3 mmol/L (3-11); BUN 12 mg/dL (7-18); Bilirubin, Total 0.2 mg/dL (0.2-1.0); CO2 28.7 mmol/L (21.0-32.0); CREATININE 0.9 mg/dL (0.55-1.02); Calcium 9.2 mg/dL (8.5-10.1); Chloride 106 mmol/L (98-107); Glucose 88 mg/dL (74-106); Sodium 142 mmol/L (136-145); Total Protein 6.9 g/dL (6.4-8.2)
== END 2020-12-28 23:59 | disposition home or self-care (01) ==
LOC: INF 02:18
PROVIDERS: PCP Family Medicine; Visit Provider Internal Medicine Hematology & Oncology
DX: C34.92 Malignant neoplasm of unspecified part of left bronchus or lung (principal); Z45.2 Encounter for adjustment and management of vascular access device
CPT/HCPCS: 36591; 80053; 85025

== ENCOUNTER 2021-01-15 01:42 | Outpatient (RCR) | payer MEDICAID, SELFPAY ==
[2021-01-01] MEDS: Normal Saline Flush 10 ML SYR IVP (08:08)
[2021-01-01 08:26] LABS: Abs Immature Grans 0.02 10^3/uL (0.0-0.06); Absolute Basophil Count 0.02 10^3/uL (0.0-0.2); Absolute Eosinophil Count 0.11 10^3/uL (0.0-0.7); Absolute Lymphocyte Count 0.96 10^3/uL (1.2-3.4); Absolute Monocyte Count 0.47 10^3/uL (0.1-0.8); Absolute Neutrophil Count 4.76 10^3/uL (1.2-6.7); Basophils % 0.3; Eosinophils % 1.7; HCT 40.6 % (36.0-46.0); HGB 13.6 g/dL (11.2-15.7); Immature Grans % 0.3; Lymphocytes % 15.1; MCH 32.2 pg (27.0-33.0); MCHC 33.5 % (32.0-36.0); MPV 11.2 fL (8.0-11.0); Monocytes % 7.4; Neutrophils % 75.2; Nucleated RBC 0 %; Platelet Count 200 10^3/uL (130-400); RBC 4.23 10^6/uL (3.93-5.22); RDW 13.9 % (11.7-14.6); RDW-SD 48.2 fL; WBC 6.34 10^3/uL (4.4-10.8)
[2021-01-01 08:38] LABS: ALT 24 U/L (14-59); AST 14 U/L (15-37); Albumin 3.4 g/dL (3.4-5.0); Alkaline Phosphatase 106 U/L (46-116); Anion Gap 9.7 mmol/L (3-11); BUN 11 mg/dL (7-18); Bilirubin, Total 0.3 mg/dL (0.2-1.0); CO2 27.3 mmol/L (21.0-32.0); CREATININE 0.8 mg/dL (0.55-1.02); Calcium 9.1 mg/dL (8.5-10.1); Chloride 105 mmol/L (98-107); Glucose 113 mg/dL (74-106); Potassium 3.9 mmol/L (3.5-5.1); Sodium 142 mmol/L (136-145); Total Protein 6.8 g/dL (6.4-8.2)
[2021-01-15] MEDS: Normal Saline Flush 10 ML SYR IVP (08:03)
[2021-01-15 08:28] LABS: Abs Immature Grans 0.01 10^3/uL (0.0-0.06); Absolute Basophil Count 0.03 10^3/uL (0.0-0.2); Absolute Eosinophil Count 0.11 10^3/uL (0.0-0.7); Absolute Monocyte Count 0.54 10^3/uL (0.1-0.8); Absolute Neutrophil Count 4.83 10^3/uL (1.2-6.7); Basophils % 0.5; Eosinophils % 1.7; HCT 40.7 % (36.0-46.0); HGB 13.7 g/dL (11.2-15.7); Immature Grans % 0.2; Lymphocytes % 15.3; MCH 32.6 pg (27.0-33.0); MCHC 33.7 % (32.0-36.0); MCV 96.9 fL (80-95); MPV 11.8 fL (8.0-11.0); Monocytes % 8.3; Nucleated RBC 0 %; Platelet Count 203 10^3/uL (130-400); RDW 13.8 % (11.7-14.6); RDW-SD 49.7 fL; WBC 6.52 10^3/uL (4.4-10.8)
[2021-01-15 09:02] LABS: ALT 20 U/L (14-59); AST 11 U/L (15-37); Albumin 3.5 g/dL (3.4-5.0); Alkaline Phosphatase 102 U/L (46-116); Anion Gap 9.6 mmol/L (3-11); BUN 14 mg/dL (7-18); Bilirubin, Total 0.3 mg/dL (0.2-1.0); CO2 27.4 mmol/L (21.0-32.0); CREATININE 0.8 mg/dL (0.55-1.02); Calcium 9.1 mg/dL (8.5-10.1); Chloride 104 mmol/L (98-107); Glucose 110 mg/dL (74-106); Sodium 141 mmol/L (136-145); Total Protein 6.9 g/dL (6.4-8.2)
== END 2021-01-27 23:59 | disposition home or self-care (01) ==
LOC: INF 01:42
PROVIDERS: PCP Family Medicine; Visit Provider Internal Medicine Hematology & Oncology
DX: C34.92 Malignant neoplasm of unspecified part of left bronchus or lung (principal); Z45.2 Encounter for adjustment and management of vascular access device
CPT/HCPCS: 36591; 80053; 85025

== ENCOUNTER 2021-02-02 00:24 | Outpatient (CLI) | payer MEDICAID, SELFPAY ==
--- NOTE | 2021-02-02 08:45 | DI.MRI_ITS ---
Exam(s) MR BRAIN WO/W EXAM: MR BRAIN WO/W CLINICAL HISTORY: BRAIN METS C79.31 SMALL CELL LUNG CANCER FU AFTER THERAPY TECHNIQUE: Multiplanar multisequence MRI of the brain was performed. Both noninfused and contrast i nfused sequences were performed. IV Contrast injected was 17 cc Dotarem. COMPARISON: MR MR BRAIN WO/W from 10/17/2020 MR MR BRAIN WO/W from 10/17/2020 FINDINGS: CEREBRAL PARENCHYMA: There is relatively stable appearance of size of the previously described metastatic lesions in the b rain. These exhibit slight less enhancement when compared to the prior study, although this may be r elated to technical factors. In addition, on the present study these lesions now exhibit hyperintens ity on the precontrast T1 weighted sequence, and also again exhibit some blooming on susceptibility i maging, this indicating an element of focal hemorrhage in these lesions. The amount of surrounding edema is unchanged as is the amount of periventricular white matter signal abnormality with the exception of some decrease in white matter edema around the high left parietal r egion lesion. There are no new additional new ring-enhancing lesions nor new abnormal meningeal enhancement, focal nor diffuse. Ventricular size is normal. PITUITARY GLAND: No mass nor parasellar abnormality. No obvious abnormality in the cavernous sinuses. FLOW VOIDS: The expected flow void are noted. No evidence of obvious aneurysm nor obvious vascular ma lformation. There is no evidence of venous sinus thrombosis. PARANASAL SINUSES: The visualized paranasal sinuses appear unremarkable. ORBITS: No obvious abnormal findings. IMPRESSION: 1. No new ring-enhancing lesions in the brain. Previously described lesions exhibit slight decrease in amount of enhancement although presently exhibits precontrast T1 hyper intensity consistent with e lement of subacute hemorrhage associated with these lesions. Possibly related to treatment. No increasing edema. DATA REPOSITORY:
[2021-02-02] MEDS: Normal Saline Flush 10 ML SYR IVP (09:07)
[2021-02-02] MEDS: Gadoterate meglumine 20 ML VIAL 17 ML IVP (09:08)
== END 2021-02-02 00:44 ==
PROVIDERS: PCP Family Medicine; Visit Provider Radiology Radiation Oncology
DX: C79.31 Secondary malignant neoplasm of brain (principal)
CPT/HCPCS: 70553

== ENCOUNTER 2021-02-26 02:51 | Outpatient (RCR) | payer MEDICAID, SELFPAY ==
--- OUTSIDE RECORDS SUMMARY | 2021-01-29 02:02 | XMS_ITS ---
:1970 Author Care Team Providers Name Role Phone REID GRIJALVA MD Primary Care Provider [phone] [facility] MEDICAL RECORDS OTHER [phone] Allergies Code Code System Name Reaction Severity Status Onset Iodinated ? ? Active ? Contrast Media 932154 RxNorm Keflex ? ? Active ? Nsaids GI Bleed ? Active ? (Non-steroidal Anti-inflammat ory Drug) Medications Name Status Start Date Stop Date ? ? Breo Ellipta 200 mcg-25 mcg/dose powder for inhalation Completed 05/12/2015 02/18/2017 1 (one) Puff: daily clotrimazole 1 % topical cream Active ? N ot available Flovent HFA 220 mcg/actuation Completed ? aerosol inhaler fluticasone propionate 50 Active ? Not av ailable mcg/actuation nasal spray,suspension Guaiatussin AC 10 mg-100 mg/5 mL oral liquid Active ? Not available 5 Milliliter: prn levofloxacin 500 mg tablet Active ? Not a vailable 1 (one) Tablet: daily loratadine 10 mg tablet Active ? Not avai lable losartan 50 mg tablet Completed ? 09/30/2017 nystatin 100,000 unit/mL oral Completed ? suspension olmesartan 40 mg tablet Active ? Not avai lable omeprazole 20 mg Active ? Not available capsule,delayed release prednisone 10 mg tablet Active ? Not avai lable Take 4 tablets every day by oral route for 4 days, then take 3 tablets every day by oral route for 4 days, then take 2 tablets every day by oral route for 4 days, and then take 1 tablet every day by oral route for 4 days then stop. prednisone 20 mg tablet Completed ? 07/23/19 18 ProAir HFA 90 mcg/actuation Active ? Not available aerosol inhaler Qvar 80 mcg/actuation Metered Completed ? Aerosol oral inhaler Qvar RediHaler 80 mcg/actuation HFA breath activated aerosol Act kailee ? Not available inhale 2 puff by mouth twice a day Spiriva with HandiHaler 18 mcg Completed ? 0 07/22/2017 and inhalation capsules Stiolto Respimat 2.5 mcg-2.5 mcg/actuation solution for inhalati on Active ? Not available Inhale 2 puffs every day by inhalation route. Trelegy Ellipta 100 mcg-62.5 Unknown ? Not available mcg-25 mcg powder for inhalation valsartan 320 mg tablet Completed ? 10/01/19 18 Xopenex HFA 45 mcg/actuation aerosol inhaler Completed 07/201102/19/2015 2 (two) puff(s): every four hours as needed Problems Name Status Onset Date Source ? [place]anger[place]ans Cell Histiocytosis of Lung Active ? History Overweight Active ? History Tobacco Dependence Syndrome Active ? Hist ory Depressive Disorder Active ? History Chronic Sinusitis Active ? History Chronic Obstructive Lung Disease Active ? History Post-inflammatory Pulmonary Fibrosis Active ? History Irritable Bowel Syndrome Active ? History Irregular Periods Active ? History Family History of Malignant Neoplasm of Active ? History Gastrointestinal Tract General Examination of Patient Active ? H istory SNOMED CT Concept Active ? History Procedure by Method Active ? History Procedures Date Name Performed by ? 06/23/2007 Lung Surgery Information not avai lable Notes: lung biopsy Results Lab Results None recorded. Past Encounters None recorded. Social History None recorded. Vaccine List Vaccine Type influenza, injectable, quadrivalent 11/28/2017 influenza, seasonal, injectable 12/30/2007 pneumococcal polysaccharide PPV23 11/28/2013 Tdap 05/30/2011 Plan of Care Reminders Provider Appointments None ? ? recorded. Lab None ? ? recorded. Referral None ? ? recorded. Procedures None ? ? recorded. Surgeries None ? ? recorded. Imaging None ? ? recorded. Vitals 01/17/2018 02:15PM Office 30 Height Weight BMI Blood Pressure 163.83 cm 86.3 kg 32.2 kg/m2 140/80 mm[Hg] 09/30/2017 02:15PM Office 30 Height Weight BMI Blood Pressure 163.83 cm 87.7 kg 32.7 kg/m2 140/90 mm[Hg] 07/22/2017 03:30PM Office 15 Height Weight BMI Blood Pressure 163.83 cm 88.9 kg 33.1 kg/m2 138/80 mm[Hg] 03/18/2017 Height Weight Blood Pressure 163.83 cm 88.9 kg 122/80 mm[Hg] 02/18/2017 Height Weight Blood Pressure 163.83 cm 87.15 kg 140/90 mm[Hg] 05/12/2015 Height Weight Blood Pressure 163.83 cm 86.72 kg 122/84 mm[Hg] 03/24/2015 Height Weight Blood Pressure 163.83 cm 86.18 kg 120/72 mm[Hg]
[2021-01-29] MEDS: Normal Saline Flush 10 ML SYR IVP (08:29)
[2021-01-29 08:42] LABS: Abs Immature Grans 0.01 10^3/uL (0.0-0.06); Absolute Basophil Count 0.02 10^3/uL (0.0-0.2); Absolute Lymphocyte Count 0.93 10^3/uL (1.2-3.4); Absolute Monocyte Count 0.61 10^3/uL (0.1-0.8); Absolute Neutrophil Count 4.41 10^3/uL (1.2-6.7); Basophils % 0.3; Eosinophils % 1.6; HCT 40.7 % (36.0-46.0); HGB 13.6 g/dL (11.2-15.7); Immature Grans % 0.2; Lymphocytes % 15.3; MCH 32.5 pg (27.0-33.0); MCHC 33.4 % (32.0-36.0); MCV 97.1 fL (80-95); MPV 11.3 fL (8.0-11.0); Neutrophils % 72.6; Nucleated RBC 0 %; Platelet Count 219 10^3/uL (130-400); RBC 4.19 10^6/uL (3.93-5.22); RDW 13.7 % (11.7-14.6); RDW-SD 49.5 fL; WBC 6.08 10^3/uL (4.4-10.8)
[2021-01-29 08:58] LABS: ALT 20 U/L (14-59); AST 12 U/L (15-37); Albumin 3.3 g/dL (3.4-5.0); Alkaline Phosphatase 96 U/L (46-116); Anion Gap 7.4 mmol/L (3-11); BUN 13 mg/dL (7-18); Bilirubin, Total 0.3 mg/dL (0.2-1.0); CO2 26.6 mmol/L (21.0-32.0); CREATININE 0.8 mg/dL (0.55-1.02); Calcium 8.7 mg/dL (8.5-10.1); Chloride 103 mmol/L (98-107); Glucose 121 mg/dL (74-106); Sodium 137 mmol/L (136-145); Total Protein 6.7 g/dL (6.4-8.2)
[2021-02-02] MEDS: Normal Saline Flush 10 ML SYR IVP (08:45)
[2021-02-02] MEDS: Heparin 500 UNITS/5 ML SYRINGE IV (08:45)
[2021-02-12] MEDS: Normal Saline Flush 10 ML SYR IVP (07:40)
[2021-02-12 07:45] LABS: Abs Immature Grans 0.02 10^3/uL (0.0-0.06); Absolute Basophil Count 0.03 10^3/uL (0.0-0.2); Absolute Eosinophil Count 0.14 10^3/uL (0.0-0.7); Absolute Monocyte Count 0.54 10^3/uL (0.1-0.8); Absolute Neutrophil Count 4.83 10^3/uL (1.2-6.7); Basophils % 0.5; Eosinophils % 2.2; HCT 40.7 % (36.0-46.0); HGB 13.6 g/dL (11.2-15.7); Immature Grans % 0.3; Lymphocytes % 13.9; MCH 33.2 pg (27.0-33.0); MCHC 33.4 % (32.0-36.0); MCV 99.3 fL (80-95); MPV 10.9 fL (8.0-11.0); Monocytes % 8.4; Neutrophils % 74.7; Nucleated RBC 0 %; Platelet Count 220 10^3/uL (130-400); RDW 13.4 % (11.7-14.6); RDW-SD 48.7 fL; WBC 6.46 10^3/uL (4.4-10.8)
[2021-02-12 07:58] LABS: ALT 21 U/L (14-59); AST 12 U/L (15-37); Albumin 3.2 g/dL (3.4-5.0); Alkaline Phosphatase 105 U/L (46-116); Anion Gap 7.2 mmol/L (3-11); BUN 12 mg/dL (7-18); Bilirubin, Total 0.2 mg/dL (0.2-1.0); CO2 27.8 mmol/L (21.0-32.0); CREATININE 0.9 mg/dL (0.55-1.02); Chloride 105 mmol/L (98-107); Glucose 106 mg/dL (74-106); Potassium 4.1 mmol/L (3.5-5.1); Sodium 140 mmol/L (136-145); Total Protein 6.8 g/dL (6.4-8.2)
[2021-02-26] MEDS: Normal Saline Flush 10 ML SYR IVP (07:57)
[2021-02-26 08:09] LABS: Abs Immature Grans 0.01 10^3/uL (0.0-0.06); Absolute Basophil Count 0.03 10^3/uL (0.0-0.2); Absolute Eosinophil Count 0.12 10^3/uL (0.0-0.7); Absolute Lymphocyte Count 0.93 10^3/uL (1.2-3.4); Absolute Monocyte Count 0.52 10^3/uL (0.1-0.8); Absolute Neutrophil Count 3.68 10^3/uL (1.2-6.7); Basophils % 0.6; Eosinophils % 2.3; HCT 42.8 % (36.0-46.0); Immature Grans % 0.2; Lymphocytes % 17.6; MCH 33.5 pg (27.0-33.0); MCHC 32.7 % (32.0-36.0); MCV 102.4 fL (80-95); MPV 11.2 fL (8.0-11.0); Monocytes % 9.8; Neutrophils % 69.5; Nucleated RBC 0 %; Platelet Count 209 10^3/uL (130-400); RBC 4.18 10^6/uL (3.93-5.22); RDW 13.7 % (11.7-14.6); WBC 5.29 10^3/uL (4.4-10.8)
[2021-02-26 08:22] LABS: ALT 22 U/L (14-59); AST 15 U/L (15-37); Albumin 3.4 g/dL (3.4-5.0); Alkaline Phosphatase 106 U/L (46-116); Anion Gap 10.8 mmol/L (3-11); BUN 10 mg/dL (7-18); Bilirubin, Total 0.1 mg/dL (0.2-1.0); CO2 22.2 mmol/L (21.0-32.0); Calcium 8.8 mg/dL (8.5-10.1); Chloride 106 mmol/L (98-107); Estimated GFR 58.69 (mL/min/1.73m2); Glucose 116 mg/dL (74-106); Potassium 4.4 mmol/L (3.5-5.1); Sodium 139 mmol/L (136-145); Total Protein 6.9 g/dL (6.4-8.2)
== END 2021-02-27 23:59 | disposition home or self-care (01) ==
LOC: INF 02:51
PROVIDERS: PCP Family Medicine; Visit Provider Internal Medicine Hematology & Oncology
DX: C34.92 Malignant neoplasm of unspecified part of left bronchus or lung (principal); Z45.2 Encounter for adjustment and management of vascular access device
CPT/HCPCS: 36415; 36591; 80053; 96523; 85025

== ENCOUNTER 2021-03-10 01:07 | Outpatient (CLI) | payer MEDICAID, SELFPAY ==
--- NOTE | 2021-03-10 10:05 | DI.CT_ITS ---
Exam(s) CT CHEST/ABD/PEL W EXAM: CT CHEST/ABD/PEL W CLINICAL HISTORY: LT LUNG CANCER C34.92 ASSESS TREATMENT RESPONSE TECHNIQUE: CT examination of the chest, abdomen, and pelvis was performed utilizing intravenous inf usion of 100 cc of Omnipaque 350 with biphasic hepatic imaging. Oral contrast was also administered. COMPARISON: CT CT CHEST/ABD/PEL W from 10/21/2020 FINDINGS: There are severe pulmonary emphysematous changes. The patient has a history of treated lung carcinom a. Current examination is compared with prior CT of October 21, 2020. There is a new apparent cavitating mass or consolidation in the left upper lobe, not present on prior examination. This measures about 2.5 cm in diameter. There is slightly increased prominence of lef t hilar nodes and a left AP window node has increased in size from 5 millimeters to 7 millimeters in diameter. No additional new intrapulmonary or mediastinal abnormality. The No pleural effusion. No pleural based mass. No axillary or supraclavicular adenopathy. Tracheobronchial tree appears intact. No evidence of pulmonary embolic disease. Unremarkable appearance of thoracic aorta and major branch vessels. The liver appears normal with no focal hepatic lesion identified. Spleen is unremarkable in appearance. Pancreas appears intact. Adrenals appear normal. Kidneys are unremarkable in appearance with no renal mass, hydronephrosis, or nephrolithiasis. Abdominal aorta and major visceral branches appear intact. No focal bowel pathology. Appendix is normal. No evidence of diverticulitis. No abdominal or pelvic adenopathy. No significant abdominal wall hernia. No focal bony lesion identified on scanning of the chest, abdomen, and pelvis. IMPRESSION: New cavitating mass versus consolidation of left upper lobe in a patient with a history of lung carci noma. Additionally there appears to be subtle increase in lymph node size in left hilum and AP windo w nodes.. RADIATION DOSE DELIVERED: 2,016.63mGy.cm Total DLP 2,016.63mGy.cm Total DLP 21.6mGy CTDIvol RADIATION OPTIMIZATION: All CT scans at this facility use at least one of these dose optimization te chniques: automated exposure control; mA and/or kV adjustment per patient size (includes targeted exa ms where dose is matched to clinical indication); or iterative reconstruction.
[2021-03-10] MEDS: Breeza Beverage 473 ML BTL PO (10:07)
[2021-03-10] MEDS: Omnipaque 350 MG/ML 50 ML BTL PO (10:13)
[2021-03-10] MEDS: Omnipaque 350 MG/ML 100 ML BTL IJ (10:16)
== END 2021-03-10 01:27 ==
PROVIDERS: PCP Family Medicine; Visit Provider Internal Medicine Hematology & Oncology
DX: C34.12 Malignant neoplasm of upper lobe, left bronchus or lung (principal); R59.9 Enlarged lymph nodes, unspecified
CPT/HCPCS: 74177; 71260; J3490; Q9967

== ENCOUNTER 2021-03-26 03:12 | Outpatient (RCR) | payer MEDICAID, SELFPAY ==
[2021-03-10] MEDS: Normal Saline Flush 10 ML SYR IVP (07:58)
[2021-03-10] MEDS: Heparin 500 UNITS/5 ML SYRINGE IV (07:58)
[2021-03-10 08:16] LABS: Abs Immature Grans 0.02 10^3/uL (0.0-0.06); Absolute Basophil Count 0.02 10^3/uL (0.0-0.2); Absolute Eosinophil Count 0.09 10^3/uL (0.0-0.7); Absolute Lymphocyte Count 0.96 10^3/uL (1.2-3.4); Absolute Monocyte Count 0.59 10^3/uL (0.1-0.8); Absolute Neutrophil Count 3.65 10^3/uL (1.2-6.7); Basophils % 0.4; Eosinophils % 1.7; HCT 41.3 % (36.0-46.0); HGB 13.6 g/dL (11.2-15.7); Immature Grans % 0.4; MCH 32.8 pg (27.0-33.0); MCHC 32.9 % (32.0-36.0); MCV 99.5 fL (80-95); MPV 10.8 fL (8.0-11.0); Monocytes % 11.1; Neutrophils % 68.4; Nucleated RBC 0 %; Platelet Count 232 10^3/uL (130-400); RBC 4.15 10^6/uL (3.93-5.22); RDW 13.4 % (11.7-14.6); RDW-SD 49.6 fL; WBC 5.33 10^3/uL (4.4-10.8)
[2021-03-10 08:31] LABS: ALT 31 U/L (14-59); AST 15 U/L (15-37); Albumin 3.6 g/dL (3.4-5.0); Alkaline Phosphatase 109 U/L (46-116); Anion Gap 8.4 mmol/L (3-11); BUN 12 mg/dL (7-18); Bilirubin, Total 0.3 mg/dL (0.2-1.0); CO2 27.6 mmol/L (21.0-32.0); CREATININE 0.8 mg/dL (0.55-1.02); Calcium 8.9 mg/dL (8.5-10.1); Chloride 105 mmol/L (98-107); Glucose 92 mg/dL (74-106); Potassium 4.3 mmol/L (3.5-5.1); Sodium 141 mmol/L (136-145); Total Protein 7.2 g/dL (6.4-8.2)
[2021-03-26] MEDS: Normal Saline Flush 10 ML SYR IVP (11:04)
[2021-03-26 11:09] LABS: Abs Immature Grans 0.02 10^3/uL (0.0-0.06); Absolute Basophil Count 0.02 10^3/uL (0.0-0.2); Absolute Eosinophil Count 0.09 10^3/uL (0.0-0.7); Absolute Neutrophil Count 4.41 10^3/uL (1.2-6.7); Basophils % 0.3; Eosinophils % 1.4; HCT 40.3 % (36.0-46.0); HGB 13.2 g/dL (11.2-15.7); Immature Grans % 0.3; Lymphocytes % 17.4; MCH 32.9 pg (27.0-33.0); MCHC 32.8 % (32.0-36.0); MCV 100.5 fL (80-95); MPV 11.3 fL (8.0-11.0); Neutrophils % 69.6; Nucleated RBC 0 %; Platelet Count 204 10^3/uL (130-400); RBC 4.01 10^6/uL (3.93-5.22); RDW 13.6 % (11.7-14.6); RDW-SD 50.2 fL; WBC 6.34 10^3/uL (4.4-10.8)
[2021-03-26 11:27] LABS: ALT 20 U/L (14-59); AST 11 U/L (15-37); Albumin 3.5 g/dL (3.4-5.0); Alkaline Phosphatase 89 U/L (46-116); Anion Gap 10.8 mmol/L (3-11); BUN 13 mg/dL (7-18); Bilirubin, Total 0.2 mg/dL (0.2-1.0); CO2 25.2 mmol/L (21.0-32.0); CREATININE 0.8 mg/dL (0.55-1.02); Calcium 8.8 mg/dL (8.5-10.1); Chloride 102 mmol/L (98-107); Glucose 108 mg/dL (74-106); Sodium 138 mmol/L (136-145); Total Protein 7.2 g/dL (6.4-8.2)
== END 2021-03-30 23:59 | disposition home or self-care (01) ==
LOC: INF 03:12
PROVIDERS: PCP Family Medicine; Visit Provider Internal Medicine Hematology & Oncology
DX: C34.92 Malignant neoplasm of unspecified part of left bronchus or lung (principal); Z45.2 Encounter for adjustment and management of vascular access device
CPT/HCPCS: 36591; 80053; 85025

== ENCOUNTER 2021-04-02 02:29 | Outpatient (RCR) | payer MEDICAID, SELFPAY ==
[2021-04-02 07:30] LABS: Abs Immature Grans 0.04 10^3/uL (0.0-0.06); Absolute Basophil Count 0.02 10^3/uL (0.0-0.2); Absolute Eosinophil Count 0.13 10^3/uL (0.0-0.7); Absolute Lymphocyte Count 0.85 10^3/uL (1.2-3.4); Absolute Monocyte Count 0.43 10^3/uL (0.1-0.8); Absolute Neutrophil Count 3.85 10^3/uL (1.2-6.7); Basophils % 0.4; Eosinophils % 2.4; HGB 13.6 g/dL (11.2-15.7); Immature Grans % 0.8; MCHC 33.2 % (32.0-36.0); MCV 99.5 fL (80-95); MPV 11.5 fL (8.0-11.0); Monocytes % 8.1; Neutrophils % 72.3; Nucleated RBC 0 %; Platelet Count 226 10^3/uL (130-400); RBC 4.12 10^6/uL (3.93-5.22); RDW 13.2 % (11.7-14.6); RDW-SD 48.3 fL; WBC 5.32 10^3/uL (4.4-10.8)
[2021-04-02 07:42] LABS: ALT 23 U/L (14-59); AST 11 U/L (15-37); Albumin 3.6 g/dL (3.4-5.0); Alkaline Phosphatase 93 U/L (46-116); BUN 12 mg/dL (7-18); Bilirubin, Total 0.2 mg/dL (0.2-1.0); Calcium 9.2 mg/dL (8.5-10.1); Chloride 100 mmol/L (98-107); Estimated GFR 58.69 (mL/min/1.73m2); Glucose 141 mg/dL (74-106); Potassium 3.9 mmol/L (3.5-5.1); Sodium 137 mmol/L (136-145); Total Protein 7.3 g/dL (6.4-8.2)
[2021-04-02] MEDS: Normal Saline Flush 10 ML SYR IVP (07:56)
[2021-04-02] MEDS: Heparin 500 UNITS/5 ML SYRINGE IV (07:56)
== END 2021-04-27 23:59 | disposition home or self-care (01) ==
LOC: INF 02:29
PROVIDERS: PCP Family Medicine; Visit Provider Internal Medicine Hematology & Oncology
DX: C34.92 Malignant neoplasm of unspecified part of left bronchus or lung (principal); Z45.2 Encounter for adjustment and management of vascular access device
CPT/HCPCS: 36591; 80053; 85025

== ENCOUNTER → 2021-05-15 00:19 | Outpatient (CLI) | payer MEDICAID, SELFPAY ==
--- NOTE | 2021-05-15 | DI.MRI_ITS ---
Exam(s) MR BRAIN WO/W EXAM: MR BRAIN WO/W CLINICAL HISTORY: F/U BRAIN METS, C79.31,LUNG CA,C34.90,S/P TREATMENT,? LEPTOMENINGAL DISEASE TECHNIQUE: Multiplanar multisequence MRI of the brain was performed. Additional post contrast axial and coronal T1 weighted and multi planer MP rage imaging was obtained. COMPARISON: MR MR BRAIN WO/W from 02/02/2021 FINDINGS: The ventricular system is normal in appearance. Comparison with prior examination of February 02, 2021 again shows periventricular white matter signal changes note is again made of multiple small enhancing lesions in the brain, the largest in the righ t occipital lobe and left posterior parietal lobe. These appear unchanged comparison with prior exam inations. No significant new enhancing lesion or mass lesion seen.. The orbital and temporal bone structures appear intact as does the pituitary. Diffusion weighted imaging shows no evidence of infarction. Susceptibility weighted imaging again shows small focal hemorrhages associated with left-sided tiny e nhancing lesions, no change. There is normal flow void in the [place] vasculature. IMPRESSION: Stable multiple presumed intracranial metastases in patient with a history of lung carcinoma. No gross leptomeningeal enhancement identified. DATA REPOSITORY:
[2021-05-15] MEDS: Normal Saline Flush 10 ML SYR IVP (08:11)
[2021-05-15] MEDS: Gadoterate meglumine 20 ML VIAL 17 ML IVP (08:12)
== END ==
PROVIDERS: PCP Family Medicine; Visit Provider Internal Medicine
DX: C34.12 Malignant neoplasm of upper lobe, left bronchus or lung (principal); C79.31 Secondary malignant neoplasm of brain
CPT/HCPCS: 70553

== ENCOUNTER 2021-05-21 02:38 | Outpatient (RCR) | payer MEDICAID, SELFPAY ==
[2021-04-30] MEDS: Normal Saline Flush 10 ML SYR IVP (08:50)
[2021-04-30 08:57] LABS: Abs Immature Grans 0.03 10^3/uL (0.0-0.06); Absolute Basophil Count 0.03 10^3/uL (0.0-0.2); Absolute Lymphocyte Count 1.23 10^3/uL (1.2-3.4); Absolute Monocyte Count 0.62 10^3/uL (0.1-0.8); Absolute Neutrophil Count 4.57 10^3/uL (1.2-6.7); Basophils % 0.5; Eosinophils % 1.5; HCT 43.3 % (36.0-46.0); HGB 14.6 g/dL (11.2-15.7); Immature Grans % 0.5; Lymphocytes % 18.7; MCH 33.5 pg (27.0-33.0); MCHC 33.7 % (32.0-36.0); MCV 99.3 fL (80-95); MPV 11.2 fL (8.0-11.0); Monocytes % 9.4; Neutrophils % 69.4; Nucleated RBC 0 %; Platelet Count 208 10^3/uL (130-400); RBC 4.36 10^6/uL (3.93-5.22); RDW 13.3 % (11.7-14.6); RDW-SD 49.1 fL; WBC 6.58 10^3/uL (4.4-10.8)
[2021-04-30 09:12] LABS: ALT 21 U/L (14-59); AST 15 U/L (15-37); Albumin 3.8 g/dL (3.4-5.0); Alkaline Phosphatase 87 U/L (46-116); Anion Gap 8.9 mmol/L (3-11); BUN 11 mg/dL (7-18); Bilirubin, Total 0.3 mg/dL (0.2-1.0); CO2 26.1 mmol/L (21.0-32.0); CREATININE 0.9 mg/dL (0.55-1.02); Calcium 9.5 mg/dL (8.5-10.1); Chloride 105 mmol/L (98-107); Glucose 91 mg/dL (74-106); Potassium 4.3 mmol/L (3.5-5.1); Sodium 140 mmol/L (136-145); Total Protein 7.4 g/dL (6.4-8.2)
[2021-05-15] MEDS: Normal Saline Flush 10 ML SYR IVP (07:48)
[2021-05-15] MEDS: Heparin 500 UNITS/5 ML SYRINGE IV (07:48)
[2021-05-21 08:08] LABS: Abs Immature Grans 0.02 10^3/uL (0.0-0.06); Absolute Basophil Count 0.03 10^3/uL (0.0-0.2); Absolute Eosinophil Count 0.16 10^3/uL (0.0-0.7); Absolute Lymphocyte Count 1.12 10^3/uL (1.2-3.4); Absolute Monocyte Count 0.63 10^3/uL (0.1-0.8); Basophils % 0.4; Eosinophils % 2.1; HGB 14.6 g/dL (11.2-15.7); Immature Grans % 0.3; Lymphocytes % 14.4; MCH 33.4 pg (27.0-33.0); MCHC 33.2 % (32.0-36.0); MCV 100.7 fL (80-95); MPV 11.6 fL (8.0-11.0); Monocytes % 8.1; Neutrophils % 74.7; Nucleated RBC 0 %; Platelet Count 206 10^3/uL (130-400); RBC 4.37 10^6/uL (3.93-5.22); RDW 13.2 % (11.7-14.6); RDW-SD 49.6 fL; WBC 7.76 10^3/uL (4.4-10.8)
[2021-05-21] MEDS: Normal Saline Flush 10 ML SYR IVP (08:08)
[2021-05-21 08:23] LABS: ALT 21 U/L (14-59); AST 9 U/L (15-37); Albumin 3.9 g/dL (3.4-5.0); Alkaline Phosphatase 92 U/L (46-116); Anion Gap 11.3 mmol/L (3-11); BUN 19 mg/dL (7-18); Bilirubin, Total 0.3 mg/dL (0.2-1.0); CO2 21.7 mmol/L (21.0-32.0); Calcium 9.2 mg/dL (8.5-10.1); Chloride 107 mmol/L (98-107); Estimated GFR 58.69 (mL/min/1.73m2); Glucose 151 mg/dL (74-106); Potassium 3.5 mmol/L (3.5-5.1); Sodium 140 mmol/L (136-145); Total Protein 7.6 g/dL (6.4-8.2)
== END 2021-05-28 23:59 | disposition home or self-care (01) ==
LOC: INF 02:38
PROVIDERS: PCP Family Medicine; Visit Provider Internal Medicine Hematology & Oncology
DX: C34.92 Malignant neoplasm of unspecified part of left bronchus or lung (principal); Z45.2 Encounter for adjustment and management of vascular access device
CPT/HCPCS: 36591; 80053; 96523; 85025

== ENCOUNTER → 2021-06-24 02:18 | Outpatient (CLI) | payer MEDICAID, SELFPAY ==
[2021-06-24] MEDS: Breeza Beverage 473 ML BTL PO ×2 (08:34→08:35)
[2021-06-24] MEDS: Omnipaque 350 MG/ML 50 ML BTL PO (08:34)
--- NOTE | 2021-06-24 10:19 | DI.CT_ITS ---
Exam(s) CT CHEST/ABD/PEL W EXAM: CT CHEST/ABD/PEL W CLINICAL HISTORY: SMALL CELL LUNG CA LT, C34.92, ASSESS TREATMENT RESPONSE. TECHNIQUE: Imaging Protocol: Axial computed tomography images with coronal and sagittal reformatted images were created and reviewed CONTRAST MATERIAL: Intravenous: Omnipaque 350 Contrast volume:100 ml Oral: yes COMPARISON: CT CT CHEST/ABD/PEL W from 10/21/[address] CHEST/ABD/PEL W from 03/10/2021 FINDINGS: CHEST: Tracheobronchial tree: Patent where visualized. Mediastinum and Zoe: Stable small AP window lymph node. No new adenopathy. Pulmonary parenchyma: Severe emphysematous changes. Stable area masslike density in the left upper l obe and stable diffuse interstitial thickening. New new masses or new pulmonary nodules. No infilt rates. Stable scarring left costophrenic angle. Pulmonary arteries: Well opacified. No emboli visible. Pleura: No effusion or pneumothorax. Lymph nodes: Within normal limits. Aorta: Thoracic portion non-dilated. Heart: Normal size. Bones: Unremarkable for age. No lytic or blastic lesions. Soft tissues: Port over right upper chest. ABDOMEN: Liver: Normal density. No measurable mass. Gallbladder and biliary tract: No radiodense calculus or dilation. Pancreas: Normal density, no abnormal calcifications or inflammatory process. Spleen: Normal. Kidneys: Normal size, contour and axis. No radiodense stones or obstructive uropathy. No masses seen. Adrenal glands: No masses seen. Aorta: Abdominal portion non-dilated. Atherosclerotic changes. Lymph nodes: Within normal limits. Soft tissues: Unremarkable. PELVIS: Bladder: Symmetric distention, no gross wall thickening. Bowel: No obstruction or bowel wall thickening. Peritoneal cavity: No ascites, collection or mesenteric inflammatory response. Bones: Unremarkable for age.. Reproductive organs: Status post hysterectomy. Surgical clips in pelvis. IMPRESSION: Stable appearance of mass like density and interstitial thickening in the left upper lobe. Underlyin g emphysematous changes. No new abnormalities in the chest abdomen or pelvis. RADIATION DOSE DELIVERED: 1,888.5mGy.cm Total DLP DATA REPOSITORY: All CT scans at this facility are submitted to the National Radiology Data Registry (NRDR) Dose Index Registry (DIR) with the [employer] (ACR). RADIATION OPTIMIZATION: All CT scans at this facility use at least one of these dose optimization te chniques: automated exposure control; mA and/or kV adjustment per patient size (includes targeted exa ms where dose is matched to clinical indication); or iterative reconstruction.
[2021-06-24] MEDS: Omnipaque 350 MG/ML 100 ML BTL IJ (10:38)
== END ==
PROVIDERS: PCP Family Medicine; Visit Provider Internal Medicine Hematology & Oncology
DX: C34.92 Malignant neoplasm of unspecified part of left bronchus or lung (principal); J43.8 Other emphysema
CPT/HCPCS: 74177; 71260; J3490; Q9967

== ENCOUNTER 2021-06-24 03:35 | Outpatient (RCR) | payer MEDICAID, SELFPAY ==
[2021-06-11] MEDS: Normal Saline Flush 10 ML SYR IVP (08:00)
[2021-06-11 08:23] LABS: Abs Immature Grans 0.03 10^3/uL (0.0-0.06); Absolute Basophil Count 0.03 10^3/uL (0.0-0.2); Absolute Eosinophil Count 0.16 10^3/uL (0.0-0.7); Absolute Lymphocyte Count 1.09 10^3/uL (1.2-3.4); Absolute Monocyte Count 0.73 10^3/uL (0.1-0.8); Absolute Neutrophil Count 5.34 10^3/uL (1.2-6.7); Basophils % 0.4; Eosinophils % 2.2; HCT 41.7 % (36.0-46.0); HGB 13.7 g/dL (11.2-15.7); Immature Grans % 0.4; Lymphocytes % 14.8; MCH 32.8 pg (27.0-33.0); MCHC 32.9 % (32.0-36.0); MCV 99.8 fL (80-95); MPV 11.3 fL (8.0-11.0); Monocytes % 9.9; Neutrophils % 72.3; Nucleated RBC 0 %; Platelet Count 207 10^3/uL (130-400); RBC 4.18 10^6/uL (3.93-5.22); RDW 13.5 % (11.7-14.6); RDW-SD 49.5 fL; WBC 7.38 10^3/uL (4.4-10.8)
[2021-06-11 08:37] LABS: ALT 16 U/L (14-59); AST 11 U/L (15-37); Albumin 3.6 g/dL (3.4-5.0); Alkaline Phosphatase 88 U/L (46-116); Anion Gap 12.1 mmol/L (3-11); BUN 13 mg/dL (7-18); Bilirubin, Total 0.3 mg/dL (0.2-1.0); CO2 20.9 mmol/L (21.0-32.0); CREATININE 0.9 mg/dL (0.55-1.02); Calcium 8.9 mg/dL (8.5-10.1); Chloride 109 mmol/L (98-107); Glucose 103 mg/dL (74-106); Potassium 4.1 mmol/L (3.5-5.1); Sodium 142 mmol/L (136-145); Total Protein 7.2 g/dL (6.4-8.2)
[2021-06-24] MEDS: Normal Saline Flush 10 ML SYR IVP (08:21)
[2021-06-24] MEDS: Heparin 500 UNITS/5 ML SYRINGE IV (08:21)
== END 2021-06-27 23:59 | disposition home or self-care (01) ==
LOC: INF 03:35
PROVIDERS: PCP Family Medicine; Visit Provider Internal Medicine Hematology & Oncology
DX: C34.92 Malignant neoplasm of unspecified part of left bronchus or lung (principal); Z45.2 Encounter for adjustment and management of vascular access device
CPT/HCPCS: 36591; 80053; 96523; 85025

== ENCOUNTER → 2021-07-09 00:38 | Outpatient (CLI) | payer MEDICAID, SELFPAY ==
--- NOTE | 2021-07-09 | DI.US_ITS ---
Exam(s) US AXILLA RT EXAM: US AXILLA RT CLINICAL HISTORY: RT AXILLARY LUMP, R22.9,INFLAMED,H/O METASTATIC LUNG CA,? LYMPH NODE OR OTH TECHNIQUE: Ultrasound performed using standard protocol. COMPARISON: CT CT CHEST/ABD/PEL W from 06/24/2021 FINDINGS: Ultrasound examination of the right axilla was performed. There is a palpable abnormality in suspici on of inflammation clinically. There is a horizontally oriented 14 x 6 millimeter in diameter isoechoic mildly irregular mass, there is no definite internal vascularity but there is increased [place] lesional vascularity. Multiple normal appearing lymph nodes are also seen in the axilla, the largest a 8 x 2 x 11 millimete r in diameter node period IMPRESSION: Indeterminate right axillary mass, this may represent metastatic disease versus infected node or absc ess. DATA REPOSITORY:
== END ==
PROVIDERS: PCP Family Medicine; Visit Provider Internal Medicine
DX: R22.2 Localized swelling, mass and lump, trunk (principal); Z85.118 Personal history of other malignant neoplasm of bronchus and lung
CPT/HCPCS: 76642

== ENCOUNTER 2021-07-23 02:49 | Outpatient (RCR) | payer MEDICAID, SELFPAY ==
[2021-07-02] MEDS: Normal Saline Flush 10 ML SYR IVP (10:01)
[2021-07-02 10:10] LABS: Abs Immature Grans 0.03 10^3/uL (0.0-0.06); Absolute Basophil Count 0.02 10^3/uL (0.0-0.2); Absolute Eosinophil Count 0.09 10^3/uL (0.0-0.7); Absolute Lymphocyte Count 0.95 10^3/uL (1.2-3.4); Absolute Monocyte Count 0.99 10^3/uL (0.1-0.8); Absolute Neutrophil Count 5.09 10^3/uL (1.2-6.7); Basophils % 0.3; Eosinophils % 1.3; HCT 41.2 % (36.0-46.0); HGB 13.8 g/dL (11.2-15.7); Immature Grans % 0.4; Lymphocytes % 13.2; MCH 33.3 pg (27.0-33.0); MCHC 33.5 % (32.0-36.0); MCV 100 fL (80-95); MPV 11.1 fL (8.0-11.0); Monocytes % 13.8; Platelet Count 185 10^3/uL (130-400); RBC 4.14 10^6/uL (3.93-5.22); RDW 13.2 % (11.7-14.6); RDW-SD 48.7 fL; WBC 7.17 10^3/uL (4.4-10.8)
[2021-07-02 10:23] LABS: ALT 19 U/L (14-59); AST 12 U/L (15-37); Albumin 3.7 g/dL (3.4-5.0); Alkaline Phosphatase 103 U/L (46-116); Anion Gap 9.1 mmol/L (3-11); BUN 11 mg/dL (7-18); Bilirubin, Total 0.2 mg/dL (0.2-1.0); CO2 20.9 mmol/L (21.0-32.0); CREATININE 0.9 mg/dL (0.55-1.02); Calcium 8.9 mg/dL (8.5-10.1); Chloride 108 mmol/L (98-107); Glucose 91 mg/dL (74-106); Potassium 3.7 mmol/L (3.5-5.1); Sodium 138 mmol/L (136-145); Total Protein 7.4 g/dL (6.4-8.2)
== END 2021-07-28 23:59 | disposition home or self-care (01) ==
LOC: INF 02:49
PROVIDERS: PCP Family Medicine; Visit Provider Internal Medicine Hematology & Oncology
DX: Z45.2 Encounter for adjustment and management of vascular access device (principal); C34.92 Malignant neoplasm of unspecified part of left bronchus or lung
CPT/HCPCS: 36591; 80053; 85025

== ENCOUNTER → 2021-08-10 01:42 | Outpatient (CLI) | payer MEDICAID, SELFPAY ==
--- NOTE | 2021-08-10 | DI.MRI_ITS ---
Exam(s) MR BRAIN WO/W EXAM: MR BRAIN WO/W CLINICAL HISTORY: METS SCLC, C34.90, INTRACTABLE JOSHI, R51.9, ? LEPTOMENIGNEAL DISEASE. TECHNIQUE: Multiplanar multisequence MRI of the brain was performed. CONTRAST MATERIAL: IV Contrast: 15 ML of Dotarem contrast administered. COMPARISON: MR MR BRAIN WO/W from 05/15/2021 FINDINGS: There are stable area of abnormal contrast enhancement in the right occipital lobe and high posterior left parietal regions. There are a few other scattered tiny foci abnormal enhancement, unchanged. Stable severe white matter changes. No acute infarct. Stable atrophy. There is near complete opacification of the left maxillary sinus. No bony destruction. Remaining si nuses as well as mastoid air cells appear clear. The orbits and pituitary are unremarkable. IMPRESSION: Stable bilateral areas of abnormal contrast enhancement. New left maxillary sinus disease. DATA REPOSITORY:
[2021-08-10] MEDS: Normal Saline Flush 10 ML SYR IVP (08:52)
== END ==
PROVIDERS: PCP Family Medicine; Visit Provider Internal Medicine
DX: C34.92 Malignant neoplasm of unspecified part of left bronchus or lung (principal); R51.9 Headache, unspecified; C79.31 Secondary malignant neoplasm of brain; R90.82 White matter disease, unspecified; J32.0 Chronic maxillary sinusitis
CPT/HCPCS: 70553

== ENCOUNTER 2021-08-10 03:04 | Outpatient (RCR) | payer MEDICAID, SELFPAY ==
[2021-08-10] MEDS: Heparin 500 UNITS/5 ML SYRINGE IV (08:21)
[2021-08-10] MEDS: Normal Saline Flush 10 ML SYR IVP (08:21)
== END 2021-08-27 23:59 | disposition home or self-care (01) ==
LOC: INF 03:04
PROVIDERS: PCP Family Medicine; Visit Provider Internal Medicine Hematology & Oncology
DX: Z45.2 Encounter for adjustment and management of vascular access device (principal)
CPT/HCPCS: 96523

== ENCOUNTER → 2021-08-12 01:30 | Outpatient (CLI) | payer MEDICAID, SELFPAY ==
--- NOTE | 2021-08-12 | DI.US_ITS ---
Exam(s) US BREAST LT COMPLETE US BREAST RT COMPLETE MG MAMMO DIAGNOSTIC BI EXAM: MG MAMMO DIAGNOSTIC BI AND BILATERAL COMPLETE BREAST ULTRASOUND CLINICAL HISTORY: AXILLARY MASS, RT, R22.9. TECHNIQUE: BOTH CC AND MLO mammographic images of both breastswere obtained with 3D tomosynthesis te chnique and utilizing computer aided detection (CAD). Also performed additional spot compression vie w finding in the left breast. We also performed complete ultrasound examination of both breasts including all 4 quadrants, both ret roareolar regions and both axillary regions. This patient claims that the recent right axillary finding has decreased in size and spontaneously dr beckford. 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 COMPARISON: Prior mammograms were reviewed, the most recent being 2016. Recent right axillary ultrasound was reviewed FINDINGS: BILATERAL DIAGNOSTIC MAMMOGRAM: The fibroglandular tissue pattern is moderately dense. There are no significant radiograph findings in the right breast. In the left breast there is a small asymmetric density slightly medial of center located 3 cm in from the nipple. We performed additional spot compression CC 3D views through this region. This is equi vocal. There are no malignant-appearing microcalcification groups in either breast and there is no significa nt architectural distortion nor skin thickening-traction. BILATERAL COMPLETE BREAST ULTRASOUND: RIGHT breast ultrasound reveals no significant focal findings in all 4 quadrants. In the right axilla the previously described superficial finding has significantly decreased in size. Probably benign such as a sebaceous cyst LEFT breast ultrasound reveals a solitary finding which is at the 12 o'clock position. There are no findings this level on the mammogram. This 12 o'clock finding on ultrasound measures approximately 1 .5 x 0.4 cm, wider than taller and not associated with decreased through transmission nor hypervascul arity. Is somewhat difficult to determine if this is just asymmetric breast tissue or more concernin g pathology. There are no other focal findings in all 4 quadrants of the left breast. Scanning of the left axilla is negative for adenopathy. IMPRESSION: 1. No radiographic evidence of malignancy in either breast. 2. However, the left breast ultrasound reveals a 15 x 4 millimeter finding at 12 o'clock position ty cribed above which should undergo repeat ultrasound examination in 3 months. There is no finding on the mammogram to correspond to this incidental ultrasound finding breast. 3. With respect to the previously described right axillary finding, this has significantly decreased in size and, according to the patient, has drained and deflated. Therefore it was probably a sebaceo us cyst. It is also decreased in size on the ultrasound today Appropriate follow-up, as discussed by myself with the patient today is REPEAT LEFT BREAST IMAGING IN 3 MONTHS, this to include repeat left breast ultrasound and mammogram.. The patient was informed of the findings and follow-up recommendations by myself prior to leaving the department today. BI-RADS Category 3 - 6 month - Probably Benign Finding: Recommend follow-up breast imaging as describ ed above in 3 months Breast Density - Category B - Scattered areas of fibroglandular density Breast density Category C or D implies that the patient has dense breast tissue. Dense breast tissue can make it harder to find cancer on a mammogram. Dense breast tissue is also associated with an incr eased risk of breast cancer. This information about the result of the mammogram report was provided to the patient to raise their awareness. Use this report when you speak with the patient about their risks for breast cancer, which includes their family history. At that time, you may recommend additional screening tests (Ultrasoun d or MRI) as these tests may add significant information. A negative radiographic report should not delay biopsy if a dominant or clinically suspicious mass is present. Up to ten percent of cancers are not identified on mammography. A negative report may reinforce clinical impression. Adenosis and dense breasts may obscure an underlying neoplasm. False positive reports average 6 to 10%. Patient will receive a letter notifying them of these results.
== END ==
PROVIDERS: PCP Family Medicine; Visit Provider Family Medicine
DX: R22.2 Localized swelling, mass and lump, trunk (principal); R92.8 Other abnormal and inconclusive findings on diagnostic imaging of breast
CPT/HCPCS: 76642; 77062; 77066; G0279

== ENCOUNTER 2021-10-22 02:37 | Outpatient (RCR) | payer MEDICAID, SELFPAY ==
[2021-10-22] MEDS: Heparin 500 UNITS/5 ML SYRINGE IV (09:33)
[2021-10-22] MEDS: Normal Saline Flush 10 ML SYR IVP (09:33)
[2021-10-22 09:57] LABS: Abs Immature Grans 0.04 10^3/uL (0.0-0.06); Absolute Basophil Count 0.05 10^3/uL (0.0-0.2); Absolute Eosinophil Count 0.07 10^3/uL (0.0-0.7); Absolute Lymphocyte Count 1.16 10^3/uL (1.2-3.4); Absolute Monocyte Count 0.86 10^3/uL (0.1-0.8); Absolute Neutrophil Count 7.82 10^3/uL (1.2-6.7); Basophils % 0.5; Eosinophils % 0.7; HCT 38.5 % (36.0-46.0); HGB 12.3 g/dL (11.2-15.7); Immature Grans % 0.4; Lymphocytes % 11.6; MCH 31.2 pg (27.0-33.0); MCHC 31.9 % (32.0-36.0); MCV 98 fL (80-95); MPV 10.7 fL (8.0-11.0); Monocytes % 8.6; Neutrophils % 78.2; Platelet Count 319 10^3/uL (130-400); RBC 3.94 10^6/uL (3.93-5.22); RDW 11.9 % (11.7-14.6); RDW-SD 42.8 fL
[2021-10-22 10:26] LABS: ALT 23 U/L (14-59); AST 12 U/L (15-37); Albumin 3.2 g/dL (3.4-5.0); Alkaline Phosphatase 115 U/L (46-116); Anion Gap 8.8 mmol/L (3-11); BUN 13 mg/dL (7-18); Bilirubin, Total 0.2 mg/dL (0.2-1.0); CO2 28.2 mmol/L (21.0-32.0); CREATININE 0.8 mg/dL (0.55-1.02); Calcium 9.3 mg/dL (8.5-10.1); Chloride 98 mmol/L (98-107); Glucose 102 mg/dL (74-106); Potassium 4.3 mmol/L (3.5-5.1); Sodium 135 mmol/L (136-145); Total Protein 7.8 g/dL (6.4-8.2)
== END 2021-10-28 23:59 | disposition home or self-care (01) ==
LOC: INF 02:37
PROVIDERS: PCP Family Medicine; Visit Provider Internal Medicine Hematology & Oncology
DX: Z45.2 Encounter for adjustment and management of vascular access device (principal); C34.92 Malignant neoplasm of unspecified part of left bronchus or lung
CPT/HCPCS: 36591; 80053; 85025

== ENCOUNTER 2021-10-29 11:17 | Emergency (ER) | payer MEDICAID, SELFPAY ==
[2021-10-29] VITALS (55 sets, daily range): BP systolic 82–134; BP diastolic 48–87; PULSE 71–162; RESP 13–45; TEMP 36.2; O2SAT 90–100
--- NOTE | 2021-10-29 11:15 | RT.EKG_ITS ---
APPROVED REPORT Exam: Resting ECG Reason for Exam: WEAKNESS Patient Location: E HR:107 bpm ECG Measurements Heart Rate 107 AXIS ID 159 P 57 QRSd 89 QRS 44 QT 327 T 58 QTc 437 Conclusion Sinus tachycardia...rate> 99. Sinus. No STEMI. I have reviewed and interpreted ECG and agree with software generated interpretation.
--- NOTE | 2021-10-29 11:45 | DI.CT_ITS ---
Exam(s) CT HEAD WO EXAM: CT HEAD WO CLINICAL HISTORY: Right sided weakness, and numbness. TECHNIQUE: Imaging Protocol: Axial computed tomography images with coronal and sagittal reformatted images were created and reviewed COMPARISON: Prior brain MRI studies were reviewed FINDINGS: There are no skull fractures nor fluid in the visualized paranasal sinuses. Previously present opac ification left maxillary sinus seen on the MRI scan of 08/10/2021 has resolved. Sinuses are presentl y clear. Again noted is abundant bilateral relatively symmetrical advanced periventricular white matter hypode nsity. Peripherally hyperdense lesion in the right occipital lobe is again noted as is a focal hyper density in left frontal supra ventricular region, these previously documented on MRI. Subtle calcifi cations noted bilaterally in basal ganglia. IMPRESSION: Findings as above. Please see separate MRI dictation from today which is compared to prior MRI exami nations in this patient apparently is known metastatic lung CA. RADIATION DOSE DELIVERED: 769.77mGy.cm Total DLP DATA REPOSITORY: All CT scans at this facility are submitted to the National Radiology Data Registry (NRDR) Dose Index Registry (DIR) with the [employer] (ACR). RADIATION OPTIMIZATION: All CT scans at this facility use at least one of these dose optimization te chniques: automated exposure control; mA and/or kV adjustment per patient size (includes targeted exa ms where dose is matched to clinical indication); or iterative reconstruction.
[2021-10-29 12:20] LABS: Abs Immature Grans 0.03 10^3/uL (0.0-0.06); Absolute Basophil Count 0.03 10^3/uL (0.0-0.2); Absolute Eosinophil Count 0.09 10^3/uL (0.0-0.7); Absolute Lymphocyte Count 1.01 10^3/uL (1.2-3.4); Absolute Monocyte Count 0.95 10^3/uL (0.1-0.8); Absolute Neutrophil Count 7.26 10^3/uL (1.2-6.7); Basophils % 0.3; HCT 35.7 % (36.0-46.0); HGB 11.9 g/dL (11.2-15.7); Immature Grans % 0.3; Lymphocytes % 10.8; MCHC 33.3 % (32.0-36.0); MCV 96 fL (80-95); MPV 10.8 fL (8.0-11.0); Monocytes % 10.1; Neutrophils % 77.5; Platelet Count 271 10^3/uL (130-400); RBC 3.72 10^6/uL (3.93-5.22); RDW-SD 42.4 fL; WBC 9.37 10^3/uL (4.4-10.8)
[2021-10-29 12:33] LABS: PTT Activated 29.2 sec (21.0-27.5); Prothrombin Time 9.7 sec (9.3-11.0)
[2021-10-29 12:34] LABS: ALT 17 U/L (14-59); AST 10 U/L (15-37); Albumin 2.9 g/dL (3.4-5.0); Alkaline Phosphatase 112 U/L (46-116); Anion Gap 6.6 mmol/L (3-11); BUN 9 mg/dL (7-18); Bilirubin, Total 0.1 mg/dL (0.2-1.0); CO2 28.4 mmol/L (21.0-32.0); CREATININE 0.7 mg/dL (0.55-1.02); Calcium 8.9 mg/dL (8.5-10.1); Chloride 100 mmol/L (98-107); Estimated GFR 104.65 (mL/min/1.73m2); Glucose 98 mg/dL (74-106); Magnesium 1.9 mg/dL (1.8-2.4); Potassium 3.9 mmol/L (3.5-5.1); Sodium 135 mmol/L (136-145); Total Protein 7.4 g/dL (6.4-8.2); Troponin I < 50 ng/L (<or=60)
--- NOTE | 2021-10-29 12:42 | DI.MRI_ITS ---
Exam(s) MR BRAIN WO/W EXAM: MR BRAIN WO/W CLINICAL HISTORY: Right sided weakness and paresthesia TECHNIQUE: Multiplanar multisequence MRI of the brain was performed. Both noninfused and contrast i nfused sequences were performed. IV Contrast injected was 14 cc Dotarem. COMPARISON: MR MR BRAIN WO/W from 08/10/[address] HEAD WO from 10/29/2021 FINDINGS: The previously opacified left maxillary sinus is presently clear. All the paranasal sinuses are pres ently clear and there is also no abnormal signal in the mastoid air cells. CEREBRAL PARENCHYMA: There is again noted abundant bilateral relatively symmetrical periventricular w viktor matter signal abnormality evident on FLAIR imaging, not associated with abnormal signal in the c erebellar hemispheres, thalami and midbrain. Mild increased signal is again noted in both sides of t he isidro. Enhance sing lesion in the right occipital lobe is again noted, just posterior to the atrium of the r ight lateral ventricle and exhibiting minimal if any significant change from 08/10/2021. No increasi ng surrounding edema. There is now a small enhancing lesion in the left occipital lobe measuring 5 x 5 millimeters, larger than previous. Tiny bright focus in the left frontal parietal region is uncha nged from previous. High left parietal enhancing lesion is slightly larger than previous but with si milar amount of surrounding edema. No other enhancing lesions seen. No new abnormal meningeal enhan cement. DWI: No new areas of restricted diffusion to suggest acute infarcts. There is some restricted diffus ion at the above described lesions. SWI: No obvious microhemorrhages evident. PITUITARY GLAND: No mass nor parasellar abnormality. No obvious abnormality in the cavernous sinuses. FLOW VOIDS: The expected flow void are noted. No evidence of obvious aneurysm nor obvious vascular ma lformation. No evidence of venous sinus thrombosis. PARANASAL SINUSES: The visualized paranasal sinuses appear unremarkable. ORBITS: No obvious abnormal findings. IMPRESSION: 1. Mild progression when compared to prior MRI scan of 08/10/2021. 2. No new acute territorial infarct. 3. The paranasal sinuses are presently clear. Previously present sinusitis left maxillary sinuses c leared. DATA REPOSITORY:
[2021-10-29] MEDS: ACETAMINOPHEN 1,000 MG/100 ML BTL 400 MG IVPB (12:51)
[2021-10-29] MEDS: Normal Saline 500 ML IV (13:20)
--- NOTE | 2021-10-29 14:19 | NUR.NOTE ---
Human Performance Professor Karan Childs's charting reviewed by this nurse.
[2021-10-29] MEDS: Normal Saline Flush 10 ML SYR IVP (15:15)
--- NOTE | 2021-10-29 15:18 | ED.GENADUL_ITS ---
Discharge Plan Disposition Patient Disposition: AGAINST MEDICAL ADVICE Condition: Serious Discharge Details Clinical Impression: Paresthesias, Lung cancer metastatic to brain, Small cell lung cancer Primary Care Provider: Chasity Watson ED Provider: Lisandra Palomino Home Meds and New Rx's Prescriptions: New dexamethasone [Decadron] 4 mg tablet 4 mg PO BID Qty: 27 0RF Rx Instructions: take 8 mg twice daily for 4 days take 4 mg twice daily for 3 days take 4 mg once daily for 3 days take 2 mg once daily for 3 days Continued Spiriva Respimat 2.5 mcg/actuation mist 1 puff inhalation DAILY polyethylene glycol 3350 [Miralax] 17 gram powder in packet 17 g PO DAILY PRN albuterol sulfate [ProAir HFA] 90 mcg/actuation HFA aerosol inhaler 2 puff inhalation Q4H PRN fluticasone propionate [Flonase Allergy Relief] 50 mcg/actuation spray,suspension 2 spray intranasal DAILY Rx Instructions: administer into each nostril omeprazole 20 mg capsule,delayed release(DR/EC) 20 mg PO DAILY ipratropium bromide 42 mcg (0.06 %) spray,non-aerosol 2 spray intranasal TID Rx Instructions: administer into each nostril Discharge Instructions Additional Instructions: Review narrowed at your site leaving AGAINST MEDICAL ADVICE and have not spoken with your oncology team at [facility] You are at risk for further deterioration and even I recommend you call them tomorrow Referrals: Chasity Watson [Primary Care Provider] - Discharge Data Discharge Date/Time-TO BE ENTERED AT DEPARTURE: 10/29/21 17:32 Medical Decision Making <Braulio Jean NP - Last Filed: 10/30/21 08:34> Patient presenting to the emergency department for chief complaint of headache with right facial numbness and paresthesias to right arm. Patient states this started yesterday around 5:00 PM and has had some resolution of the paresthesias but still present. Patient denies any trauma or injury. Patient has significant past medical history of lung cancer with metastasis to the brain. Physical exam shows paresthesias to the lateral branch of the facial nerve but no motor dysfunction and other cranial nerves intact without focal finding, reported paresthesia from patient's forearm to hand, pronator drift of right upper extremity and right lower extremity. No other findings noted. We will plan on performing labs and CT imaging for differential diagnosis to include worsening neurological symptoms due to metastasis versus acute stroke. Will give patient acetaminophen for headache pending results. Reviewed labs that show nondiagnostic CBC, CMP with slightly low sodium of 135 otherwise nondiagnostic. Negative initial troponin. Reviewed CT with radiologist that shows similar findings to previous MRIs but with patient having new onset of symptoms radiologist recommends repeat MRI imaging with and without contrast. Orders were placed. Lab Data Lab results reviewed: Yes I reviewed the patient's lab results. <CHASE Moscoso - Last Filed: 10/29/21 22:12> Patient presenting to the emergency department for chief complaint of headache with right facial numbness and paresthesias to right arm. Patient states this started yesterday around 5:00 PM and has had some resolution of the paresthesias but still present. Patient denies any trauma or injury. Patient has significant past medical history of lung cancer with metastasis to the brain. Physical exam shows paresthesias to the lateral branch of the facial nerve but no motor dysfunction and other cranial nerves intact without focal finding, reported paresthesia from patient's forearm to hand, pronator drift of right upper extremity and right lower extremity. No other findings noted. We will plan on performing labs and CT imaging for differential diagnosis to include worsening neurological symptoms due to metastasis versus acute stroke. Will gi ve patient acetaminophen for headache pending results. Reviewed labs that show nondiagnostic CBC, CMP with slightly low sodium of 135 otherwise nondiagnostic. Negative initial troponin. Reviewed CT with radiologist that shows similar findings to previous MRIs but with patient having new onset of symptoms radiologist recommends repeat MRI imaging with and without contrast. Orders were placed. LB: Care accepted from above provider in transition pending MRI MRI shows progression of patient brain metastases, this was discussed with Dr. Sanabria, radiologist Patient made aware regarding this finding and recommendation to stay in the emergency department until her neuro oncologist was consulted, she is refusing to stay and is fully alert, oriented, of decisional capacity Patient is leaving against her medical recommendation She has stable vitals at time of discharge and is appropriate in demeanor Case was discussed with Dr. Heredia, oncologist at [facility] and recommendation to initiate Decadron, this was relayed to patient, she did call for the results of her consultation and Decadron was sent to patient's pharmacy The plan is for patient to have her follow-up appointment rescheduled so that she may be reassessed next week, at [facility] will reportedly contact patient, this was confirmed with Dr. Heredia and relayed to patient via telephone HPI <Braulio Jean NP - Last Filed: 10/30/21 08:34> General Mode of arrival: EMS . Date/Time Provider Initiated Documentation: 10/29/21 11:31 . Limitations to Documentation: no limitations . Information obtained by: patient and RN notes reviewed . History of Present Illness 51 year old F presents to the emergency department with the chief complaint of Headache, right-sided weakness and paresthesia, described as moderate, with intensity rated at 6. Quality is described as aching, and is localized to the head. Patient reports no radiation. Patient started experiencing this day(s) (1) and it has been constant. No relieving factors improve symptom(s), No exacerbating factors reported . Patient did receive the following treatments prior to arrival, none Related Data Home Medications Medication Instructions Recorded Confirmed albuterol sulfate 90 mcg/actuation 2 puff inhalation Q4H PRN 04/23/20 10/29/21 aerosol inhaler (ProAir HFA) fluticasone propionate 50 2 spray intranasal DAILY 04/23/20 10/29/21 mcg/actuation nasal spray,suspension (Flonase Allergy Relief) omeprazole 20 mg capsule,delayed 20 mg PO DAILY 04/23/20 10/29/21 release ipratropium bromide 42 mcg (0.06 2 spray intranasal TID 08/17/21 10/29/21 %) nasal spray polyethylene glycol 3350 17 gram 17 g PO DAILY PRN 09/11/21 10/29/21 oral powder packet (Miralax) tiotropium bromide 2.5 1 puff inhalation DAILY 09/11/21 10/29/21 mcg/actuation mist for inhalation (Spiriva Respimat) dexamethasone 4 mg tablet 4 mg PO BID #27 tabs 10/29/21 (Decadron) Previous Rx's Medication Instructions Recorded dexamethasone 4 mg tablet 4 mg PO BID #27 tabs 10/29/21 (Decadron) Allergies Allergy/AdvReac Type Severity Reaction Status Date / Time cephalexin [From Keflex] Allergy Severe Verified 10/29/21 12:07 ibuprofen Allergy Intermediate Verified 10/29/21 12:08 ivp dye Allergy Intermediate Uncoded 10/29/21 12:09 General Stated Complaint: CVA/TIA HÉCTOR: 2 Review of Systems <Braulio Jean NP - Last Filed: 10/30/21 08:34> Constitutional Constitutional: Denies chills, Denies fever(s), Reports headache(s) and Reports malaise Eyes Eyes: Denies change in vision ENT Ears, Nose, Mouth, and Throat: Reports dysphagia, Reports headache(s), Denies mouth pain, Denies neck pain, Denies odynophagia and Denies throat swelling Cardiovascular Cardiovascular: Denies chest pain, Denies syncope and Denies dyspnea Respiratory Respiratory: Denies cough and Denies dyspnea Gastrointestinal Gastrointestinal: Denies abdominal pain, Reports dysphagia, Denies nausea, Denies odynophagia and Denies vomiting Musculoskeletal Musculoskeletal: Denies back pain, Denies neck pain, Reports numbness and Reports tingling Integumentary/Breasts Skin/Breast: Denies rash Neurologic Neurologic: Reports as per HPI, Reports abnormal speech, Denies syncope, Reports headache(s), Denies localized weakness, Reports numbness and Reports tingling Psychiatric Psychiatric: Denies anxiety Allergic/Immunologic Allergic/Immunologic: Denies throat swelling PFSH <Braulio Jean NP - Last Filed: 10/30/21 08:34> All Active Problems (Updated 10/29/21 @ 17:22 by CHASE Moscoso) Paresthesias (Acute) Pulmonary fibrosis (Acute) Obesity (Chronic) COPD (chronic obstructive pulmonary disease) (Chronic) Sinus tachycardia (Acute) Alcohol abuse (Chronic) Hilar mass (Acute) Axillary mass (Acute) Small cell lung cancer (Acute) 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 (Acute) Medical History Adenomatous colon polyp Altered mental status Basal cell carcinoma Chronic cough Chronic diarrhea Depression with anxiety Deviated nasal septum Difficulty swallowing Family history of colon cancer GERD (gastroesophageal reflux disease) Hypertension IBS (irritable bowel syndrome) Insomnia secondary to chronic pain Mixed headache Nasal polyp Nasal valve collapse Peptic ulcer disease Peripheral neuropathy Thyroid cyst Visual field defect Surgical History H/O: hysterectomy Social History Smoking/Tobacco Use Status: Current every day Tobacco Type: cigarettes Smoking risk assessment performed?: Yes Alcohol Intake: never Drug use: Never Substance use type: does not use Do you feel safe at home: Yes Do you feel safe in your relationship?: Yes Exam <Braulio Jean NP - Last Filed: 10/30/21 08:34> Const General: cooperative, healthy appearing, no acute distress and well groomed Orientation: alert, awake and oriented x3 HENMT Head: normal to inspection Ears: hearing grossly normal bilaterally and TM's normal bilaterally Mouth: oral mucosae normal and moist mucous membranes Throat: posterior oropharynx normal Eyes Visual Macias: normal visual macias by confrontation Alignment and Position: alignment normal Periorbital: periorbital findings normal Eyelids: eyelids normal Sclera: sclerae normal Cornea: corneas normal Pupils: PERRL EOM: EOM intact bilaterally Neck Neck: normal visual inspection, full ROM, no lymphadenopathy and no meningeal signs Resp Effort & Inspection: normal respiratory effort and able to speak in complete sentences Auscultation: clear to auscultation bilaterally Cardio Rate: regular rate Rhythm: regular rhythm Heart Sounds: S1 normal and S2 normal Neuro General: patient alert, patient awake, patient oriented x3, tone normal, moves all extremities and not confused Cranial Nerves: individual cranial nerve findings VII: abnormal (Reduced sensation to R lower facial nerve) Cognition: normal cognition Speech: speech normal Motor: muscle tone normal throughout, no movement abnormalities noted, no fasciculations, pronator drift pronator drift of right upper extremity and strength abnormal right lower extremity Sensory Exam: lower extremity right light-touch abnormal and upper extremity right light-touch abnormal Coordination: Does not sway with eyes open Course <Braulio Jean NP - Last Filed: 10/30/21 08:34> Vital Signs Vital signs: Vital Signs Temperature 36.2 C L 10/29/21 11:20 Pulse 125 H 10/29/21 11:20 Respiratory Rate 25 H 10/29/21 11:20 Blood Pressure 123/86 10/29/21 11:20 Pulse Oximetry 99 10/29/21 11:20 Temperature 36.2 C L 10/29/21 11:20 Temperature Source Skin 10/29/21 11:20 Pulse 91 H 10/29/21 14:15 Pulse 95 H 10/29/21 14:15 Respiratory Rate 36 H 10/29/21 14:15 Respiratory Effort Non-Labored 10/29/21 12:15 Respiratory Depth Normal 10/29/21 12:15 Respiratory Pattern Normal 10/29/21 12:15 Blood Pressure 103/72 10/29/21 14:15 Blood Pressure Mean 80 10/29/21 14:15 Blood Pressure Position Sitting 10/29/21 11:20 Pulse Oximetry 95 10/29/21 14:15 Oxygen Delivery Method Room Air 10/29/21 11:20 Oxygen Flow Rate 0 10/29/21 11:20 Pain Level 6 10/29/21 11:20 Comment 2 x-strengh tylenol at 0730 10/29/21 11:20 Lab/Test Results Lab/Test Results: Laboratory Tests Range/Units 10/29/21 10/29/21 10/29/21 12:00 12:00 12:00 WBC (4.4-10.8) 10^3/uL 9.37 RBC (3.93-5.22) 10^6/uL 3.72 L Hgb (11.2-15.7) g/dL 11.9 Hct (36.0-46.0) % 35.7 L MCV (80-95) fL 96 H MCH (27.0-33.0) pg 32.0 MCHC (32.0-36.0) % 33.3 RDW (11.7-14.6) % 12.0 Plt Count (130-400) 10^3/uL 271 MPV (8.0-11.0) fL 10.8 Immature Gran % 0.3 Neutrophils % 77.5 Lymphocytes % 10.8 Monocytes % 10.1 Eosinophils % 1.0 Basophils % 0.3 Nucleated RBC % (0.0-0.3) % 0.0 Absolute Neutrophils (1.2-6.7) 10^3/uL 7.26 H Absolute Lymphocytes (1.2-3.4) 10^3/uL 1.01 L Absolute Monocytes (0.1-0.8) 10^3/uL 0.95 H Absolute Eosinophils (0.0-0.7) 10^3/uL 0.09 Absolute Basophils (0.0-0.2) 10^3/uL 0.03 PT (9.3-11.0) sec 9.7 INR (0.9-1.1) 1.0 APTT (21.0-27.5) sec 29.2 H Sodium (136-145) mmol/L 135 L Potassium (3.5-5.1) mmol/L 3.9 Chloride (98-107) mmol/L 100 Carbon Dioxide (21.0-32.0) mmol/L 28.4 Anion Gap (3-11) mmol/L 6.6 BUN (7-18) mg/dL 9 Creatinine (0.55-1.02) mg/dL 0.7 Est GFR (CKD-EPI 2020) (mL/min/1.73m2) 104.65 Glucose (74-106) mg/dL 98 Calcium (8.5-10.1) mg/dL 8.9 Magnesium (1.8-2.4) mg/dL 1.9 Total Bilirubin (0.2-1.0) mg/dL 0.1 L AST (15-37) U/L 10 L ALT (14-59) U/L 17 Alkaline Phosphatase (46-116) U/L 112 Troponin I (<or=60) ng/L < 50 Total Protein (6.4-8.2) g/dL 7.4 Albumin (3.4-5.0) g/dL 2.9 L Sign Out <Braulio Jean NP - Last Filed: 10/30/21 08:34> Sign Out Data: Sign Out Comment: Patient pending MRI results and disposition for acute neurological findings. Last updated by Braulio Jean NP at 10/29/21 16:00
[2021-10-29 16:49] LABS: Troponin I < 50 ng/L (<or=60)
== END 2021-10-29 17:32 | disposition left against medical advice (07) ==
PROVIDERS: Nurse Practitioner Family; Emergency Provider Physician Assistant; PCP Family Medicine
DX: C79.31 Secondary malignant neoplasm of brain (principal); C34.90 Malignant neoplasm of unspecified part of unspecified bronchus or lung; E87.1 Hypo-osmolality and hyponatremia; I10 Essential (primary) hypertension; F17.210 Nicotine dependence, cigarettes, uncomplicated
CPT/HCPCS: 36415; 70553; 80053; 93005; 96361; 96374; 96375; 99285; 70450; 83735; 84484; 85025; 85610; 85730; 93010; 99284; J0131

== ENCOUNTER → 2021-11-10 02:00 | Outpatient (CLI) | payer MEDICAID, SELFPAY ==
--- NOTE | 2021-11-10 | DI.MRI_ITS ---
Exam(s) MR THORACIC SPINE WO/W EXAM: MR THORACIC SPINE WO/W CLINICAL HISTORY: LUNG CA, HEADACHE, SURVEILLANCE, ? METS, C34.90 TECHNIQUE: Multiplanar multisequence MRI of the thoracic spine was performed without and with intrav enous contrast. Contrast injected was 15 mL Dotarem. COMPARISON: MR MR LUMBAR SPINE WO/W from 11/10/2021 FINDINGS: OSSEOUS: There are no acute thoracic vertebral fractures. There are no ominous osseous lesions in th e thoracic vertebrae. THORACIC SPINAL CORD: There is no abnormal signal in the cervical spinal cord and no evidence of foca l cord atrophy nor focal cord swelling. There is no evidence of syringomyelia nor significant spinal cord dysraphism. No evidence of enhancing lesions in the cord nor within the epidural space.. No c entral spinal canal stenosis. No foraminal stenosis. SIGNIFICANT INDIVIDUAL LEVEL FINDINGS: No significant disc herniations. PARASPINAL TISSUES: No significant masses nor fluid collections evident. IMPRESSION: 1. No significant findings in the thoracic spinal column. No evidence of metastatic disease. No fra ctures. No significant disc herniations. DATA REPOSITORY:
--- NOTE | 2021-11-10 | DI.MRI_ITS ---
Exam(s) MR LUMBAR SPINE WO/W EXAM: MR LUMBAR SPINE WO/W CLINICAL HISTORY: LUNG CA,HEADACHE, SURVEILLANCE, ?METS, C34.90. TECHNIQUE: Multiplanar multisequence MRI of the Lumbar spine was performed. Pre and post contrast in fused sequences were performed. Contrast injected was IV Dotarem 15 mL. COMPARISON: No exams were available for comparison FINDINGS: Conus medullaris is at normal level. There is no evidence of conus mass nor subjacent clumping of in trathecal nerve roots to suggest arachnoiditis. No evidence of drop metastases in the cauda equina t he distal thecal sac appears unremarkable.Benign Tarlov intra sacral cysts are seen in the sacral can al associated with the inferior aspect of the thecal sac. These are benign findings. Bones:There are no fractures nor ominous osseous lesions in the lumbar vertebral bodies and visualize d sacrum. With respect to the individual levels... T12-L1: Unremarkable L1-2: Normal disc height and signal. No disc herniation nor central canal stenosis.No foraminal steno sis L2-3: Normal disc height. No disc herniation nor central canal stenosis.No foraminal stenosis.No face t arthropathy. L3-4: Normal disc height. No disc herniation or central canal stenosis.No foraminal stenosis.No face t arthropathy. L4-5: Normal disc height and signal. No disc herniation or canal stenosis. No foraminal stenosis. No facet arthropathy. L5-S1: Normal disc height and signal. No disc herniation or canal stenosis. No foraminal stenosis. No facet arthropathy. Soft tissues: paraspinal soft tissues appear unremarkable.No evidence of paraspinal mass. IMPRESSION: 1. No significant findings in the lumbosacral spine. 2. No evidence of osseous lesions nor metastatic intra thecal lesions. 3. No disc herniations, canal stenosis, or foraminal stenosis. DATA REPOSITORY:
--- NOTE | 2021-11-10 | DI.MRI_ITS ---
Exam(s) MR CERVICAL SPINE WO/W EXAM: MR CERVICAL SPINE WO/W CLINICAL HISTORY: LUNG CA, C34.90,HEADACHE,ON SURVEILLANCE,?METS TECHNIQUE: Multiplanar multisequence MRI of the cervical spine was performed without intravenous con trast. Contrast injected was 15 mL Dotarem. COMPARISON: MR MR BRAIN WO/W from 10/29/2021 FINDINGS: CERVICOMEDULLARY JUNCTION: Intact with no evidence of cerebellar tonsillar ectopia. No obvious abnor mality of the odontoid process. No evidence of Chiari 1 malformation. CERVICAL SPINAL CORD: There is no abnormal signal in the cervical spinal cord and no evidence of foca l cord atrophy nor focal cord swelling. No enhancing lesion in the cervical spinal cord nor in the e pidural canal. OSSEOUS:There are no cervical fractures evident. No significant osseous lesions in the cervical vert ebrae. INDIVIDUAL LEVELS: C2-3: No disc herniation nor central canal stenosis. No foraminal stenosis. No facet arthropathy. C3-4: No disc herniation nor central canal stenosis.No facet arthropathy. No foraminal stenosis. C4-5: No disc herniation nor central canal stenosis.No facet arthropathy. No foraminal stenosis C5-6: No disc herniation or central canal stenosis. No foraminal stenosis. No facet arthropathy. C6-7: No disc herniation or central canal stenosis. No foraminal stenosis. No facet arthropathy. C7-T1: No disc herniation nor central canal stenosis. No facet arthropathy.No foraminal stenosis. IMPRESSION: 1. No significant findings on this MRI scan of the cervical spine. 2. No evidence osseous metastatic lesions nor metastatic findings in the cervical spinal cord and epi dural space. 3. No disc herniations, canal stenosis, or foraminal stenosis and there is no significant facet arthr opathy. DATA REPOSITORY:
[2021-11-11] MEDS: Normal Saline Flush 10 ML SYR IVP (09:52)
== END ==
PROVIDERS: PCP Family Medicine; Visit Provider Internal Medicine
DX: C34.90 Malignant neoplasm of unspecified part of unspecified bronchus or lung (principal); R51.9 Headache, unspecified
CPT/HCPCS: 72158; 72156; 72157

== ENCOUNTER 2021-11-11 01:33 | Outpatient (RCR) | payer MEDICAID, SELFPAY ==
[2021-11-11] MEDS: Normal Saline Flush 10 ML SYR IVP (08:57)
[2021-11-11] MEDS: Heparin 500 UNITS/5 ML SYRINGE IV (08:58)
== END 2021-11-27 23:59 | disposition home or self-care (01) ==
LOC: INF 01:33
PROVIDERS: PCP Family Medicine; Visit Provider Internal Medicine Hematology & Oncology
DX: Z45.2 Encounter for adjustment and management of vascular access device (principal)
CPT/HCPCS: 96523

== ENCOUNTER → 2021-12-03 01:42 | Outpatient (CLI) | payer MEDICARE, MEDICAID, SELFPAY ==
--- NOTE | 2021-12-03 | DI.CT_ITS ---
Exam(s) CT CHEST W EXAM: CT CHEST W CLINICAL HISTORY: LUNG CANCER C34.92 ASSESS TREATMENT RESPONSE TECHNIQUE: CT examination of the chest was performed with intravenous infusion of 100 cc of Omnipaqu e 350. COMPARISON: CT CT CHEST/ABD/PEL W from 06/24/2021 FINDINGS: Note is made of a Port-A-Cath, tip of which lies superior vena cava. Previously described left upper lobe lung carcinoma, in comparison with prior examination of June 17 there is interval development of extensive cavitation of the left lung apex involving both left up per lobe and superior portion of left lower lobe with markedly increased associated pleural radiodens ity and a small left pleural effusion period no definite new left lung metastatic lesion. No gross c entral mediastinal adenopathy.. There is no evidence of pleural effusion. There is no evidence of pulmonary embolic disease. There is unremarkable appearance of the thoracic aorta and major branches with no evidence of aneurysm or dissection. . Tracheobronchial tree appears intact. No axillary or supraclavicular adenopathy. Visualized portions of the liver, spleen, adrenals, and kidneys are unremarkable. No abnormality seen involving the bony thorax. IMPRESSION: Marked interval progression of left upper lobe lung carcinoma with significant cavitation at the left lung apex as described above. Please correlate clinically.. RADIATION DOSE DELIVERED: 622.23mGy.cm Total DLP 622.23mGy.cm Total DLP !Error CTDIvol DATA REPOSITORY: All CT scans at this facility are submitted to the National Radiology Data Registry (NRDR) Dose Index Registry (DIR) with the [employer] (A[employer]). RADIATION OPTIMIZATION: All CT scans at this facility use at least one of these dose optimization te chniques: automated exposure control; mA and/or kV adjustment per patient size (includes targeted exa ms where dose is matched to clinical indication); or iterative reconstruction.
[2021-12-03] MEDS: Omnipaque 350 MG/ML 500 ML BTL-Imaging package 70 ML IJ (08:32)
== END ==
PROVIDERS: PCP Family Medicine; Visit Provider Internal Medicine Hematology & Oncology
DX: C34.92 Malignant neoplasm of unspecified part of left bronchus or lung (principal)
CPT/HCPCS: 96523; 71260

== ENCOUNTER 2021-12-03 02:15 | Outpatient (RCR) | payer MEDICARE, MEDICAID, SELFPAY ==
[2021-12-03] MEDS: Heparin 500 UNITS/5 ML SYRINGE IV (08:24)
[2021-12-03] MEDS: Normal Saline Flush 10 ML SYR IVP (08:29)
== END 2021-12-28 23:59 | disposition home or self-care (01) ==
LOC: INF 02:15
PROVIDERS: PCP Family Medicine; Visit Provider Internal Medicine Hematology & Oncology
DX: Z45.2 Encounter for adjustment and management of vascular access device (principal)
CPT/HCPCS: 96523

== ENCOUNTER 2022-03-10 15:03 | Outpatient (REF) | payer MEDICARE, MEDICAID, SELFPAY ==
[2022-03-10 17:36] LABS: Bilirubin Negative (Negative); Blood Negative (Negative); Clarity Cloudy (Clear); Glucose Negative (Negative); Ketones Negative (Negative); Leukocyte Esterase Negative (Negative); Nitrite Negative (Negative); pH 6.5 (5-8)
== END 2022-03-10 15:04 | disposition home or self-care (01) ==
LOC: LBN 15:03
PROVIDERS: PCP Family Medicine; Visit Provider Nurse Practitioner
DX: N39.0 Urinary tract infection, site not specified (principal)
CPT/HCPCS: 81003